=== PATIENT | male | born 1965 | race Caucasian/White ===

== ENCOUNTER 2023-05-02 13:29 | Outpatient (REF) | payer OTHER, SELFPAY ==
--- NOTE | ~2023-05-02 | XR_ITS ---
EXAMINATION: XR LUMBOSACRAL SPINE CLINICAL INFORMATION: Reason for Exam M43.16 - Spondylolisthesis, lumbar region COMPARISON: None TECHNIQUE: 3 views of the lumbar spine FINDINGS: 5 nonrib-bearing lumbar-type vertebral bodies. Suspected lucency in the left aspect of the L1 transverse process, unclear if this could be secondary to overlying bowel gas or reflect a nondisplaced transverse process fracture. Recommend correlation with point tenderness. Vertebral body heights are maintained. Alignment is maintained. Grade 1 anterolisthesis of L4 on L5 not significantly changed on flexion extension views. Moderate multilevel degenerative disc disease with loss of disc space height and facet arthropathy. Atherosclerotic calcifications of the abdominal aorta. XR/XR lumbar spine 4V min IMPRESSION: 1. Suspected lucency in the left aspect of the L1 transverse process, unclear if this could be secondary to overlying bowel gas or reflect a nondisplaced transverse process fracture. Recommend correlation with point tenderness. 2. Grade 1 anterolisthesis of L4 on L5 not significantly changed on flexion extension views. 3. Moderate multilevel degenerative disc disease with loss of disc space height and facet arthropathy.
== END 2023-05-02 13:30 | disposition home or self-care (01) ==
LOC: HO.HOSX 13:29
PROVIDERS: Visit Provider Physician Assistant
DX: M43.16 Spondylolisthesis, lumbar region (principal)
CPT/HCPCS: 72110

== ENCOUNTER 2024-02-26 14:29 | Outpatient (AMB) | payer OTHER, SELFPAY ==
--- NOTE | 2024-02-26 14:37 | A.SPINEOV_ITS ---
Intake Visit Reasons: discuss sx Intake Note: Mr. Rowe is here today to discuss surgery. 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 Please see my last note for the presenting problem in his medical history. He tells me that since we last spoke in the office, it the cortisone injection that he had has worn off and he is now getting bilateral severe stabbing pains down the back of his hamstrings when he stands and walks. It is getting to the point now where he is in almost complete agony when he is trying to walk for any length. As soon as he sits down it goes away. The bottom of his feet go numb and they feel swollen. He is also reporting now that at times he will get intermittent hand numbness as well. No fine motor loss. He has on exam some mild hand weakness but otherwise good strength in bilateral upper and lower extremities with diminished reflexes throughout. He is a diabetic however. His last A1c was 6.3. I reviewed his imaging again done at [place] in December of 2022 showing multilevel stenosis, moderate at L2-3 and L3-4 with severe at L4-5. Because he does not show any signs of instability on his x-rays, Dr. Anne believes the best approach would be simply to do a L4-5 decompression. I would like to get updated imaging because the MRI is a year old just to make sure that the stenosis has not progressed above L4-5 were was moderate. Also, he is reporting that he has had progressive numbness of his arms and in the setting of what feels like some mild hand weakness and his being diabetic, I would like to exclude that he has any central stenosis of the cervical spine. I will order cervical MRI. I will call him with the results of the MRIs just to confirm the plan. I also gave him a referral to PT because he has not done yet yet to this point, but I do not think will have any meaningful impact on his current set of symptoms. It is more being done in the setting of the insurance companies require it before us offering surgery. Total amount of time spent in this visit was 20 minutes in discussion of symptoms, lumbar MRI imaging results and subsequent plan of care Luis Miguel Anne MD,PhD [facility] Orders: Orders PT Evaluation and Treatment Today M48.061 - Spinal stenosis, lumbar region without neurogenic claudication MR cervical spine wo con Today R20.0 - Anesthesia of skin MR lumbar spine wo con Today M48.061 - Spinal stenosis, lumbar region without neurogenic claudication Coding Level of Care Code Est Pt Level 3 (25886) Diagnoses Lumbar stenosis M48.061 Numbness in both hands R20.0
== END 2024-02-26 15:52 | disposition home or self-care (01) ==
PROVIDERS: PCP Internal Medicine; Visit Provider Physician Assistant
DX: M48.061 Spinal stenosis, lumbar region without neurogenic claudication (principal); R20.0 Anesthesia of skin
CPT/HCPCS: 99213

== ENCOUNTER → 2024-02-26 14:29 | Outpatient (BNVA) | payer OTHER, SELFPAY | PROVIDERS: PCP Internal Medicine; Visit Provider Physician Assistant ==

== ENCOUNTER 2024-04-22 07:00 | Outpatient (RCR) | payer OTHER, SELFPAY ==
[2024-03-04 08:06] VITALS: BP 118/70; PULSE 79; O2SAT 96
== END 2024-09-06 08:17 | disposition home or self-care (01) ==
LOC: HO.PTWFD 07:00
PROVIDERS: PCP Internal Medicine; Visit Provider Physician Assistant
DX: M48.061 Spinal stenosis, lumbar region without neurogenic claudication (principal)
CPT/HCPCS: 97014; 97110; 97116; 97140; 97162; 97535

== ENCOUNTER 2024-08-20 15:29 | Outpatient (AMB) | payer OTHER, SELFPAY ==
--- NOTE | 2024-08-20 15:36 | A.SPINEOV_ITS ---
Intake Visit Reasons: unbalance Intake Note: Mr. Rowe is here to f/u and feeling unbalance. Fundraising Assistant Required: No Allergies Penicillins [PENICILLINS] Allergy (Unknown, Unverified 07/13/20 17:35) ANAPHYLAXIS Assessment & Plan Assessment & Plan (1) Numbness in both hands: Code(s): R20.0 - Anesthesia of skin Category: Medical (2) Lumbar stenosis: Code(s): M48.061 - Spinal stenosis, lumbar region without neurogenic claudication Category: Medical Qualifiers: Neurogenic claudication status: with neurogenic claudication Qualified Code(s): M48.062 - Spinal stenosis, lumbar region with neurogenic claudication Plan Dear colleague, On 08/20/2024, I saw Luis Miguel Rowe. He is a pleasant 59-year-old male there was previously seen by drake Desai for neurogenic claudication due to lumbar stenosis. He also had signs of cervical myelopathy. The PA order ed an MRI of the lumbar spine and cervical spine which were not done. The patient stated he never received a phone call for the tests. Patient still has symptoms of neurogenic claudication with pain radiating down both legs. He also complains of increased balance problems and proximal leg weakness which are signs of cervical myelopathy. I will resubmit the order for the MRI of the lumbar spine and cervical spine and will follow-up after the tests are done. I spent 25 minutes in his consult answering questions. Charlie Anne MD, PhD Spine Fellowship Trained Neurosurgeon Director, [facility] Orders: Orders MR lumbar spine wo con Today M48.061 - Spinal stenosis, lumbar region without neurogenic claudication MR cervical spine wo con Today R20.0 - Anesthesia of skin Coding Level of Care Code Est Pt Level 3 (45274) Diagnoses Numbness in both hands R20.0 Spinal stenosis of lumbar region with neurogenic claudication M48.062 Neurogenic claudication status: with neurogenic claudication
== END 2024-08-20 16:50 | disposition home or self-care (01) ==
PROVIDERS: PCP Internal Medicine; Visit Provider Neurological Surgery
DX: R20.0 Anesthesia of skin (principal); M48.062 Spinal stenosis, lumbar region with neurogenic claudication
CPT/HCPCS: 99213

== ENCOUNTER → 2024-08-20 15:29 | Outpatient (BNVA) | payer MEDICAID, SELFPAY | PROVIDERS: PCP Internal Medicine; Visit Provider Neurological Surgery ==

== ENCOUNTER 2024-09-08 18:18 | Outpatient (REF) | payer OTHER, SELFPAY | END 2024-09-08 18:19 | disposition home or self-care (01) | LOC: HO.MRI 18:18 | PROVIDERS: PCP Internal Medicine; Visit Provider Neurological Surgery | DX: R20.0 Anesthesia of skin (principal); M48.061 Spinal stenosis, lumbar region without neurogenic claudication | CPT/HCPCS: 72141; 72148 ==

== ENCOUNTER 2024-11-03 15:11 | Outpatient (AMB) | payer OTHER, SELFPAY ==
--- NOTE | 2024-11-03 15:16 | A.SPINEOV_ITS ---
Intake Visit Reasons: Discuss MRI Results Intake Note: Mr. Rowe is here today to Discuss the results to MRI. 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 We saw this patient originally for neurogenic claudication. The physician physician office assistant noticed signs of cervical myelopathy during the visit and decided to order a new MRI of the lumbar spine as the other 1 was more than 1-year-old and to order an MRI of the cervical spine. The MRI was done over 2 months ago and a report was still not available. The patient decided to call my office inquiring when the MRI would be read. I was notified by my staff and reviewed the images myself. The MRI of the cervical spine shows severe spinal cord compression at C6-7 and moderate spinal cord compression at C5-C6. In addition, the lumbar spine MRI shows severe spinal stenosis at L4-5 and L2-3. I repeated the history and the patient states that his neurological function is rapidly declining. Specifically, he has dexterity loss of his hands, proximal leg weakness and unsteadiness. He now walks with a cane and has fallen multiple times. He states that he can hardly walk anymore due to the in security from being off balance. He also has urge incontinence. In addition to the myelopathic symptoms he continues to have neurogenic claudication with pain radiating down both legs with walking and standing. On exam, he has a spastic gait and ambulates with a cane. There is proximal leg weakness 3/5 bilaterally. Bilateral dexterity loss of his hands. In summary, this patient is suffering from progressive cervical myelopathy due to C5-6 and C6 spinal cord compression. This needs to be addressed in a rather urgent manner. I discussed an anterior diskectomy and fusion C5-6 C6-7 with the patient. I discussed the procedure, possible complications and expected outcome. I advised him to undergo this procedure within 2-3 weeks. He will call my office after he has discuss the situation with his work and the healthcare insurance company,[employer]. As far as the lumbar spine, a lumbar laminotomy me L2-3, L4-5 can be done relatively quickly following the cervical spinal cord decompressive surgery. I spent 45 minutes in his consult to review and discuss the MRI results, the surgical plan and answering questions. 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
== END 2024-11-03 15:58 | disposition home or self-care (01) ==
PROVIDERS: PCP Internal Medicine; Visit Provider Neurological Surgery
DX: M47.12 Other spondylosis with myelopathy, cervical region (principal); M48.062 Spinal stenosis, lumbar region with neurogenic claudication
CPT/HCPCS: 99215

== ENCOUNTER → 2024-11-03 15:11 | Outpatient (BNVA) | payer OTHER, SELFPAY | PROVIDERS: PCP Internal Medicine; Visit Provider Neurological Surgery ==

== ENCOUNTER → 2024-12-07 13:06 | Outpatient (BNV) | payer OTHER, SELFPAY | PROVIDERS: PCP Internal Medicine; Visit Provider Internal Medicine Cardiovascular Disease | DX: R94.31 Abnormal electrocardiogram [ECG] [EKG] (principal); Z01.810 Encounter for preprocedural cardiovascular examination | CPT/HCPCS: 93010 ==

== ENCOUNTER 2024-12-23 06:02 | Day surgery (SDC) | payer OTHER, SELFPAY ==
--- NOTE | 2024-12-07 | ECG_ITS ---
Test Reason : PREOP Blood Pressure : */* mmHG Vent. Rate : 76 BPM Atrial Rate : 76 BPM P-R Int : 146 ms QRS Dur : 78 ms QT Int : 380 ms P-R-T Axes : 6 4 24 degrees QTcB Int : 427 ms Normal sinus rhythm Nonspecific ST abnormality Abnormal ECG When compared with ECG of 10-Aug-2014 13:04, No significant change was found Referred By: Suha Manrique Electronically Signed By: ABHILASH SHAVER MD
[2024-12-07 12:03] VITALS: BP 134/70; PULSE 82; RESP 16; O2SAT 96; BMI 38.0
--- NOTE | 2024-12-07 12:39 | HO.ANESPROP2 ---
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 (Acute) Numbness in both hands (Acute) Lumbar stenosis (Acute) Spondylolisthesis, lumbar region (Acute) Past Medical History Medical History Peripheral neuropathy Proteinuria Normocytic anemia Thrombocytopenia Asthma Hearing loss Anxiety KEYLA (obstructive sleep apnea) (~2016) GERD (gastroesophageal reflux disease) Depression Obesity Stage 3 chronic kidney disease Type 2 diabetes mellitus with hyperglycemia, without long-term current use of insulin Cervical spine disease Gout Lumbar spondylolysis HLD (hyperlipidemia) HTN (hypertension) Family History Family history of problems with anesthesia: No Surgical History Surgical History Hx of colonoscopy (~2019) Hx of meniscectomy of right knee (2011) Hx of right inguinal hernia repair (1964) History of Problems with Anesthesia: No Social History Social History Household Members: Family Housing: House Are you a primary child care center administrator to a significant other at home: No Do you presently have visiting nurse or other home services: No Comment: poor balance uses walking stick. aware of trip hazard Patient Tobacco Use Status: Former Tobacco user Tobacco use type: Cigarette Smoked in Last 30 Days: No Second Hand Smoke Exposure: No Use of substances other than those prescribed or required for medical reasons: No Have you been hit, kicked, punched, or otherwise hurt by someone within the past year? If so, by whom?: No Are you DNR?: No Advance Directives: No Advance Directives Information Provided: Yes Advance Directives on File: No Recently lost weight without trying: No Poor oral hygiene: No Meds Allergies Allergy/AdvReac Type Severity Reaction Status Date / Time amoxicillin [From Amoxil] Allergy Severe Anaphylaxis Verified 12/23/24 06:25 Penicillins [PENICILLINS] Allergy Severe ANAPHYLAXIS Verified 12/23/24 06:25 oxycodone AdvReac Severe Anxiety Verified 12/23/24 06:25 Home Medications ?Medication ?Instructions ?Recorded ?Confirmed ?Last Taken ?Type allopurinol 300 mg tablet 300 mg PO DAILY 12/06/24 12/23/24 Unknown History aspirin 81 mg tablet,delayed 81 mg PO DAILY 12/06/24 12/23/24 Unknown History release atenolol 25 mg tablet 25 mg PO DAILY 12/06/24 12/23/24 12/23/24 05:30 History lisinopril 20 1 tab PO DAILY 12/06/24 12/23/24 Unknown History mg-hydrochlorothiazide 25 mg tablet metformin 500 mg tablet 1,000 mg PO BID 12/06/24 12/23/24 Unknown History simvastatin 20 mg tablet 20 mg PO BEDTIME 12/06/24 12/23/24 Unknown History acetaminophen 650 mg 1,300 mg PO Q12H 12/07/24 12/23/24 Unknown History tablet,extended release calcium carbonate (Tums) 200 mg PO BID PRN Acid Reflux 12/07/24 12/23/24 Unknown History cholecalciferol (vitamin D3) 50 50 mcg PO DAILY 12/07/24 12/23/24 Unknown History mcg (2,000 unit) capsule (Vitamin D3) simethicone 80 mg chewable tablet 80 mg PO DAILY PRN Acid Reflux 12/07/24 12/23/24 Unknown History Exam Height,Weight and Vital Signs: Height 5 ft 10 in Weight 120.2 kg Last Vital Signs Pulse 82 12/07/24 12:03 Resp 16 12/07/24 12:03 BP 134/70 12/07/24 12:03 Pulse Ox 96 12/07/24 12:03 O2 Del Method Room Air 12/07/24 12:03 Pertinent Lab Results Pertinent Lab Results: Lab Results 12/07/24 Range/Units 13:22 WBC 7.5 (4.8-10.8) X10*3/uL RBC 4.57 L (4.60-5.80) X10*6/uL Hgb 14.8 (14.0-18.0) g/dl Hct 40.2 L (42.0-52.0) % MCV 88.0 (80.0-98.0) fL MCH 32.4 (27.0-33.0) pg MCHC 36.8 H (31.0-36.0) g/dl RDW 12.7 (11.0-16.0) % Plt Count 109 L (160-400) X10*3/uL MPV 10.1 (9.4-12.4) fL Absolute Nucleated RBC 0.000 (0.0-0.012) X10*3/uL Nucleated RBC % (auto) 0.0 (0.0-0.2) /100WBC Sodium 137 (135-145) mmol/L Potassium 3.7 (3.3-5.1) mmol/L Chloride 104 (96-108) mmol/L Carbon Dioxide 22 (22-29) mmol/L Anion Gap 15 (12-20) BUN 22 H (9-16) mg/dL Creatinine 1.25 (0.5-1.4) mg/dL Estim Creat Clear Calc 81.6 Estimated GFR 59 Random Glucose 184 H (60-115) mg/dL Estimat Average Glucose 180 mg/dL Hemoglobin A1c % 7.9 H (<6.0) % Calcium 9.4 (8.4-10.2) mg/dL Narrative Narrative: EKG 11/2024 Vent. Rate : 76 BPM Atrial Rate : 76 BPM P-R Int : 146 ms QRS Dur : 78 ms QT Int : 380 ms P-R-T Axes : 6 4 24 degrees QTcB Int : 427 ms Normal sinus rhythm Nonspecific ST abnormality Abnormal ECG When compared with ECG of 10-Aug-2014 13:04, No significant change was found Airway Mallampati Class: II TM Dist: >3cm Neck ROM: Limited Loose/Missing/Broken Teeth: Yes (Broken wisdom teeth, 1 x crowned molar) Heart: RRR Lungs: CTAB Assessment and Plan Assessment Anesthesia Assessment: Anesthesia Plan Discussed and PAT Visit Final Anesthetic Review Family History of Problems with Anesthesia: No History of Problems with Anesthesia: No Documented by User: Anila Santillan MD 12/23/24 08:57 HPI - Anesthesia Eval Consult details Narrative: 59yo M for C5-6,C6-7 Ant Cerv Discectomy w/ fusion, 12/23/24 No recent illness No CP/SOB with minimal activity Asthma: asymptomatic, no inhalers for years KEYLA: Mild. CPAP not recommended. 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 Walks with cane for balance Past Medical History Medical History Peripheral neuropathy Proteinuria Normocytic anemia Thrombocytopenia Asthma Hearing loss Anxiety KEYLA (obstructive sleep apnea) (~2017) GERD (gastroesophageal reflux disease) Depression Obesity Stage 3 chronic kidney disease Type 2 diabetes mellitus with hyperglycemia, without long-term current use of insulin Cervical spine disease Gout Lumbar spondylolysis HLD (hyperlipidemia) HTN (hypertension) Family History Family history of problems with anesthesia: No Surgical History Surgical History Hx of colonoscopy (~2019) Hx of meniscectomy of right knee (2011) Hx of right inguinal hernia repair (1965) History of Problems with Anesthesia: No Social History Social History Household Members: Family Housing: House Are you a primary child care center administrator to a significant other at home: No Do you presently have visiting nurse or other home services: No Comment: poor balance uses walking stick. aware of trip hazard Patient Tobacco Use Status: Former Tobacco user Tobacco use type: Cigarette Smoked in Last 30 Days: No Second Hand Smoke Exposure: No Use of substances other than those prescribed or required for medical reasons: No Have you been hit, kicked, punched, or otherwise hurt by someone within the past year? If so, by whom?: No Are you DNR?: No Advance Directives: No Advance Directives Information Provided: Yes Advance Directives on File: No Recently lost weight without trying: No Poor oral hygiene: No Meds Allergies Allergy/AdvReac Type Severity Reaction Status Date / Time amoxicillin [From Amoxil] Allergy Severe Anaphylaxis Verified 12/23/24 06:25 Penicillins [PENICILLINS] Allergy Severe ANAPHYLAXIS Verified 12/23/24 06:25 oxycodone AdvReac Severe Anxiety Verified 12/23/24 06:25 Home Medications ?Medication ?Instructions ?Recorded ?Confirmed ?Last Taken ?Type allopurinol 300 mg tablet 300 mg PO DAILY 12/06/24 12/23/24 Unknown History aspirin 81 mg tablet,delayed 81 mg PO DAILY 12/06/24 12/23/24 Unknown History release atenolol 25 mg tablet 25 mg PO DAILY 12/06/24 12/23/24 12/23/24 05:30 History lisinopril 20 1 tab PO DAILY 12/06/24 12/23/24 Unknown History mg-hydrochlorothiazide 25 mg tablet metformin 500 mg tablet 1,000 mg PO BID 12/06/24 12/23/24 Unknown History simvastatin 20 mg tablet 20 mg PO BEDTIME 12/06/24 12/23/24 Unknown History acetaminophen 650 mg 1,300 mg PO Q12H 12/07/24 12/23/24 Unknown History tablet,extended release calcium carbonate (Tums) 200 mg PO BID PRN Acid Reflux 12/07/24 12/23/24 Unknown History cholecalciferol (vitamin D3) 50 50 mcg PO DAILY 12/07/24 12/23/24 Unknown History mcg (2,000 unit) capsule (Vitamin D3) simethicone 80 mg chewable tablet 80 mg PO DAILY PRN Acid Reflux 12/07/24 12/23/24 Unknown History Exam Height,Weight and Vital Signs: Height 5 ft 10 in Weight 120.2 kg Last Vital Signs Pulse 82 12/07/24 12:03 Resp 16 12/07/24 12:03 BP 134/70 12/07/24 12:03 Pulse Ox 96 12/07/24 12:03 O2 Del Method Room Air 12/07/24 12:03 Vital Signs Temp Pulse Resp BP Pulse Ox O2 Del Method 12/23/24 06:27 97.7 F 74 16 139/88 96 Room Air Pertinent Lab Results Pertinent Lab Results: Lab Results 12/07/24 Range/Units 13:22 WBC 7.5 (4.8-10.8) X10*3/uL RBC 4.57 L (4.60-5.80) X10*6/uL Hgb 14.8 (14.0-18.0) g/dl Hct 40.2 L (42.0-52.0) % MCV 88.0 (80.0-98.0) fL MCH 32.4 (27.0-33.0) pg MCHC 36.8 H (31.0-36.0) g/dl RDW 12.7 (11.0-16.0) % Plt Count 109 L (160-400) X10*3/uL MPV 10.1 (9.4-12.4) fL Absolute Nucleated RBC 0.000 (0.0-0.012) X10*3/uL Nucleated RBC % (auto) 0.0 (0.0-0.2) /100WBC Sodium 137 (135-145) mmol/L Potassium 3.7 (3.3-5.1) mmol/L Chloride 104 (96-108) mmol/L Carbon Dioxide 22 (22-29) mmol/L Anion Gap 15 (12-20) BUN 22 H (9-16) mg/dL Creatinine 1.25 (0.5-1.4) mg/dL Estim Creat Clear Calc 81.6 Estimated GFR 59 Random Glucose 184 H (60-115) mg/dL Estimat Average Glucose 180 mg/dL Hemoglobin A1c % 7.9 H (<6.0) % Calcium 9.4 (8.4-10.2) mg/dL Laboratory Results - last 24 hr 12/23/24 06:41 POC Glucose 201 H Airway Mallampati Class: III TM Dist: >3cm Neck ROM: Limited (Restricted side to side movement. Extension OK) Loose/Missing/Broken Teeth: Yes (Broken molar bottom right. Missing tooth bottom right back. Denies loose tooth) Heart: RRR Lungs: CTAB Assessment and Plan Assessment Anesthesia Assessment: Anesthesia Plan Discussed, PAT Visit and Chart Reviewed Final Anesthetic Review Family History of Problems with Anesthesia: No History of Problems with Anesthesia: No NPO: Yes ASA Class: III Final Preanesthetic Review: No Changes in Pt Med Stat, Meds/Allgs Chart Reviewed, Consent Obtained/Reviewed and Anes Risks/Benef Reviewed Patient Risk: Intermediate Procedure Risk: Intermediate Assessment/Block/Sedation in SS: Assess/Block/Sedation-SS Anesthetic Plan Anesthetic Plan: GA Disposition: Standard PACU
[2024-12-07 15:29] LABS: Hematocrit 40.2 % (42.0-52.0); Hemoglobin 14.8 g/dl (14.0-18.0); Mean Corpuscular HGB Conc 36.8 g/dl (31.0-36.0); Mean Corpuscular Hemoglobin 32.4 pg (27.0-33.0); Mean Platelet Volume 10.1 fL (9.4-12.4); Platelet Count 109 X10*3/uL (160-400); Red Blood Count 4.57 X10*6/uL (4.60-5.80); Red Cell Distribution Width 12.7 % (11.0-16.0); White Blood Count 7.5 X10*3/uL (4.8-10.8)
[2024-12-07 15:52] LABS: Anion Gap 15 (12-20); Blood Urea Nitrogen 22 mg/dL (9-16); Calcium 9.4 mg/dL (8.4-10.2); Carbon Dioxide 22 mmol/L (22-29); Chloride 104 mmol/L (96-108); Creatinine Clr Calc Pharmacy 81.6; Estimated Glomerular Filt Rate 59; Glucose Random 184 mg/dL (60-115); Potassium 3.7 mmol/L (3.3-5.1); Sodium 137 mmol/L (135-145)
[2024-12-07 16:07] LABS: Estimated Average Glucose 180 mg/dL; Hemoglobin A1C 243.8093 umol/L; Hemoglobin A1c % 7.9 % (<6.0); Total Hemoglobin (HGBA1C) 3859.6229 umol/L
[2024-12-23] VITALS (12 sets, daily range): BP systolic 128–146; BP diastolic 77–91; PULSE 71–85; RESP 16–24; TEMP 36.1–36.6; O2SAT 95–96; BMI 37.8
--- NOTE | ~2024-12-23 | FL_ITS ---
EXAMINATION: FL GUIDANCE ONLY HISTORY: c5-7 ACDF COMPARISON: Correlation is made with an MRI of the cervical spine dated 09/08/2024. TECHNIQUE: Fluoroscopy time: 7.2 seconds. Cumulative Dose: 1.5484 mGy. DAP: 0.6736 mGym2 Images: 2. FINDINGS: Images demonstrate anterior cervical disc fusion at C5-6 and C6-7. FL/FL guidance in OR IMPRESSION: Fluoroscopy during procedure. Please see procedure report for additional information. Electronically signed by: Zana Garza MD 12/23/2024 10:25 AM AMEE
[2024-12-23] MEDS: Lactated Ringers 1,000 ML 100 ML IVCONT (06:51)
--- NOTE | 2024-12-23 07:02 | MHC.SHP ---
Pre-Procedural Eval Section A - 24 Hr Update-Section A only Date of Service: 12/23/24 The patient is an INPATIENT: No Changes since office visit: No Cold of Flu in the past 2 weeks, No New Medical Problems, No Changes in Medication and No Patient answered all questions The patient has been examined within 24 hours of the surgical procedure. The History & Physical has been completed within 30 days and I have reviewed it.: No Section B - Complete if H&P > 30 days Chief Complaint: Other spondylosis with myelopathy, cervical region Allergies: Allergies Allergy/AdvReac Type Severity Reaction Status Date / Time amoxicillin [From Amoxil] Allergy Severe Anaphylaxis Verified 12/23/24 06:25 Penicillins [PENICILLINS] Allergy Severe ANAPHYLAXIS Verified 12/23/24 06:25 oxycodone AdvReac Severe Anxiety Verified 12/23/24 06:25 Review of Systems Sugical H&P ROS: Negative: Constitution, Cardiovascular, Respiratory, Neurological, Psychiatric, Hem-Onc, Allergic/Immunologic, Gastrointestinal, Genitourinary, Musculoskeletal, Integumentary, Endocrine and Eyes/Ears/Nose/Throat Exam Surgical H&P Exam: Normal: HEENT, Normal: Heart, Normal: Lungs, Normal: Extremities, Normal: Abdomen, Normal: Skin and Normal: Neurological (awake, alert,oriented x 3 ) Plan Diagnosis/Plan: Unchanged C5-6, C6-7 anterior cervical diskectomy and fusion Time Spent With Patient Time: Total time managing care of this patient today ___5_ minutes.
[2024-12-23 07:03] LABS: Glucose, Whole Blood 201 mg/dL (60-115)
--- NOTE | 2024-12-23 07:03 | PM.DS ---
DS: Providers Provider Date of Service: 12/23/24 Date of discharge: 12/23/24 Primary care physician: Nati Sanders MD Admitting clinician: Charlie Anne DS: Diagnosis Discharge Diagnosis (1) Lumbar stenosis with neurogenic claudication: Status: Acute DS: Summary Time Attestation Discharge Coordination Time (in mins): 5 Quality: Safe Use of Opioids Does Pt have an Active Cancer Diagnosis on the Problem List?: No Quality: Stroke Does the patient have a stroke diagnosis?: No Physical Exam Vital Signs: Vital Signs: Last Vital Signs Temp 97.7 F 12/23/24 06:27 Pulse 74 12/23/24 06:27 Resp 16 12/23/24 06:27 BP 139/88 12/23/24 06:27 Pulse Ox 96 12/23/24 06:27 O2 Del Method Room Air 12/23/24 06:27 BMI result Body Mass Index 37.8 DS: Data Data Completed and Pending Labs on day of discharge: Laboratory Results - last 24 hr 12/23/24 06:41 POC Glucose 201 H Discharge Plan Discharge Patient Disposition: Home, Self-Care Referrals: Nati Sanders MD [Primary Care Provider] - 1 Week Discharge Medications: New docusate sodium [Colace] 100 mg capsule 100 mg PO BID Qty: 20 0RF tramadol 50 mg tablet 50 mg PO Q6H PRN (Reason: pain) Qty: 30 0RF Continued metformin 500 mg tablet 1,000 mg PO BID atenolol 25 mg tablet 25 mg PO DAILY simvastatin 20 mg tablet 20 mg PO BEDTIME lisinopril-hydrochlorothiazide 20-25 mg tablet 1 tab PO DAILY allopurinol 300 mg tablet 300 mg PO DAILY acetaminophen 650 mg Tablet Extended Release 1,300 mg PO Q12H cholecalciferol (vitamin D3) [Vitamin D3] 50 mcg (2,000 unit) Capsule 50 mcg PO DAILY calcium carbonate [Tums] 200 mg calcium (500 mg) Tablet,Chewable 200 mg PO BID PRN (Reason: Acid Reflux) simethicone 80 mg Tablet,Chewable 80 mg PO DAILY PRN (Reason: Acid Reflux) Held aspirin 81 mg tablet,delayed release (DR/EC) 81 mg PO DAILY Hold Instructions: Resume on 12/30/24. you may resume 7 days after surgery Discharge Orders: Discharge Order (Routine); Ordered 12/23/24 Ordered By: Luis Miguel Lopez Diet: Advance to usual diet Activity on Discharge: As tolerated Activity Restrictions/Additional Instructions: After your spinal surgery we ask you to observe the following restrictions/guidelines: Activity: It is normal to feel some discomfort as you increase your activity, but that will improve with time. We ask you avoid heavy lifting or acitivities that cause pain. As a general rule, 8lbs is a safe limit for lifting right after surgery. Walk as much as you feel comfortable but not to exhaustion. You will feel extra tired the first few days after surgery. Stay well hydrated. It is OK to walk up and down stairs You may return to driving when you are off narcotics (such as vicodin, oxycodone, dilaudid, etc), and you are back to normal functional capacity. If you have any concerns please check with office before driving. Return to work is specific to each patient and each surgery, so please speak with your doctor/PA at first follow up. Please bring paperwork such as FMLA at that time if you need it filled out. Medications: You can resume your aspirin 7 days after surgery For optimum pain control, it is best to start with a combination of 500 mg of Tylenol every 4 hours with 600 mg of Motrin every 8 hours, and use narcotics as needed in between for breakthrough pain. We will give you a short supply of narcotics after surgery (usually one weeks worth). If you need more please call the office but do not use more than prescribed. You will need to give our office 48 hours notice if you need narcotics refilled and we do not fill narcotics on weekends or evenings. If you are on a narcotic, it is a good idea to take a stool softener such as colace or senna to avoid constipation If you take blood thinner such as aspirin, Plavix, Coumadin, Effient, Eliquis etc for conditions such as Afib, DVT, Pulmonary embolus, coronary disease, stents etc please speak with your surgeon about specific details as to when you can resume these medications. You can resume NSAIDs on post op day 1 (eg: Motrin, Naproxen, etc). Follow up: Please call the office, , after surgery to arrange a 3 week follow up for wound check. Wound Care: You may remove your dressing on the first day after surgery. ?You may ?leave open to air. Please do not remove the steri strips underneath. they will fall off on their own in one week. IT IS NORMAL FOR THE WOUND TO OOZE OR BE BLOODY FOR A FEW DAYS AFTER SURGERY. ?IF THIS HAPPENS JUST PLACE NEW DRESSING OVER IT TO AVOID STAINING CLOTHES. You may shower on post op day # 1 We ask that you do not let the water soak the wound. If it does get wet, just towel dry lightly. Please do not scrub your incision or place any type of chemical/ointment on the wound. No tub baths, pools or jacuzzis for one month. If you have any leaking or redness from your wound, or fevers, please call office Print Language: Lithuanian
[2024-12-23] MEDS: methocarbamoL 750 MG TABLET PO (07:36)
[2024-12-23] MEDS: Gabapentin 300 MG CAPSULE PO (07:36)
[2024-12-23] MEDS: vancomycin/NS 2,000 MG/500 ML PLAST..BAG 250 MG IV (07:55)
[2024-12-23] MEDS: Acetaminophen 1,000 MG/100 ML PIGGYBACK 400 MG IV (08:15)
--- NOTE | 2024-12-23 09:57 | P.OP_ITS ---
Operative Note Operative Note Date of Service: 12/23/24 Narrative: Preoperative Diagnosis: Cervical myelopathy Procedure: C5-C6, C6-7 Anterior discectomy, arthrodesis and implantation cage ; C5-C7 anterior instrumentation ; local autograft; microscope Informed Consent was obtained for this operation. I have explained the nature, purpose and benefits of the operation. I have discussed the risks and benefit of the operation including possible complications or adverse events with sebas ent/family. Alternative(s) were discussed with the patient with their relative benefits and risks as well as the consequences of not accepting the operation were included in obtaining consent. Surgeon: BLAYNE RUBIO MD, PHD Procedure Assisted By: Luis Miguel juan Description of Procedure: This patient is suffering from progressive cervical myelopathy due to severe spinal cord compression at C5-6 and C6-7. He was offered an ACDF of those levels. The procedure complications were explained. The patient was consented. The patient was brought to the operating room and endotracheally intubated. The patient was put in supine position with slight extension of the neck. Prep and drape was done followed by timeout. A mid cervical incision was made followed by opening of the platysma. The prevertebral fascia was reached following the natural planes while the physician business banking sales assistant provided manual retraction. The prevertebral fascia was opened to expose the disc space. A spinal needle was placed in the disk space to confirm the correct level with xray. The longus colli muscles were released bilaterally and a self retaining retractor was inserted. Large anterior osteophytes were resected from the C5-6 and C6-7 vertebral bodies and saved for autograft. An initial diskectomy was done towards the posterior part of the annulus at both levels. Two York pins were placed in the C5 and C6 vertebral bodies and distraction was give over the interspace. The discectomy was completed toward the posterior annulus of the disc. The microscope was brought in. The remainder of the discectomy was completed. The hypertrophied posterior ligament was opened and resected to expose the underlying dura. The dura was further decompressed by removing the ligament. Large posterior osteophytes were resected from the body of C5-C6 to further decompress the spinal cord. The osteophytes Osteophytes were r saved for autograft. Bilateral foraminotomies were done. The endplates were prepared after which a 6 mm cage filled with autograft was inserted into the disc space. A separate attached plate was locked down with 2 x 14 mm screws as anterior instrumentation. Then attention was turned to the C6-7 level where similar findings were encountered. The hypertrophied posterior longitudinal ligament was over them resected followed by resection of posterior osteophytes that were compressing the spinal cord. Bilateral foraminotomies were done. Then another 6 mm cage filled with autograft was inserted into the disc space. A separate attached plate was locked down with 2 x 14 mm screws as anterior instrumentation. Final x-rays in AP and lateral projection showed a satisfactory position of the implants and anterior instrumentation. The physician business banking sales assistant took over. The York pin was removed. Hemostasis was done. He closed the incision in 2 layers with a 3-0 Vicryl. Steri-Strips used to approximate incision. An OpSite with Tegaderm was used to cover the incision. All sponge and needle counts were correct. Patient was extubated and transported in stable is to recovery room. Anesthesia: General Estimated Blood Loss (ml): 25 mL Duration of Surgery: 1 hour 20 minutes Postoperative Plan: Discharge home Complications: None
[2024-12-23] MEDS: ondansetron HCL 4 MG/2 ML VIAL IVPUSH (10:12)
[2024-12-23] MEDS: Haloperidol Lactate 5 MG/ML VIAL 1 MG IVPUSH (10:50)
== END 2024-12-23 13:20 | disposition home or self-care (01) ==
PROVIDERS: Nurse Practitioner; PCP Internal Medicine; Visit Provider Neurological Surgery
PROC: (CPT 22551; principal; 2024-12-23 07:30)
DX: M50.022 Cervical disc disorder at C5-C6 level with myelopathy (principal); M50.023 Cervical disc disorder at C6-C7 level with myelopathy; M47.12 Other spondylosis with myelopathy, cervical region; M48.062 Spinal stenosis, lumbar region with neurogenic claudication; R26.1 Paralytic gait; R26.2 Difficulty in walking, not elsewhere classified; Z91.81 History of falling; R27.8 Other lack of coordination; Z99.89 Dependence on other enabling machines and devices; E11.22 Type 2 diabetes mellitus with diabetic chronic kidney disease; E11.65 Type 2 diabetes mellitus with hyperglycemia; I12.9 Hypertensive chronic kidney disease with stage 1 through stage 4 chronic kidney disease, or unspecified chronic kidney disease; N18.30 Chronic kidney disease, stage 3 unspecified; Z79.84 Long term (current) use of oral hypoglycemic drugs; G47.33 Obstructive sleep apnea (adult) (pediatric); Z88.0 Allergy status to penicillin; Z87.891 Personal history of nicotine dependence
CPT/HCPCS: 22551; 22552; 22853; 20936; 22845; 36415; 80048; 82947; 83036; 85027; 93005; C1713; C1889; J0131; J1100; J1596; J1630; J2003; J2250; J2371; J2405; J2704; J3010; J3370

== ENCOUNTER → 2024-12-23 06:02 | Outpatient (BNV) | payer OTHER, SELFPAY | PROVIDERS: PCP Internal Medicine; Visit Provider Neurological Surgery | DX: M50.023 Cervical disc disorder at C6-C7 level with myelopathy (principal); M50.022 Cervical disc disorder at C5-C6 level with myelopathy | CPT/HCPCS: 20936; 22551; 22552; 22845; 22853; 99499 ==

== ENCOUNTER 2025-01-13 15:12 | Outpatient (REF) | payer OTHER, SELFPAY | END 2025-01-13 15:13 | disposition home or self-care (01) | LOC: HO.HOSX 15:12 | PROVIDERS: PCP Internal Medicine; Visit Provider Physician Assistant | DX: Z13.89 Encounter for screening for other disorder (principal) ==

== ENCOUNTER 2025-01-13 15:12 | Outpatient (AMB) | payer OTHER, SELFPAY ==
--- NOTE | 2025-01-13 15:13 | HO.SPINEOV ---
Intake Visit Reasons: 1st post op Intake Note: Mr. Rowe is here today for his 1st post op. 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 He is very pleased with how the surgery went. His balance is much better, his ability to get out of a chair is much more stable. Interestingly, it also took away his lumbar sciatic pains. He is still having the chronic low back pain but the radicular and claudicating pains down the legs went away. The numbness in his hands is gone. His swallowing is basically back to normal. He does have some pain in the back of the neck and down along the right trapezius but otherwise his range of motion is better than it was before surgery. His wound is healed up beautifully. We discussed activity guidelines, restrictions and expectations after ACDF. With regard to his lumbar stenosis, in light of the fact that he is no longer having the claudicating symptoms he does not need to have the decompression. I did warn him that there is a good chance the symptoms may come back but for now we do not need to do the surgery. I will see him back in 6 weeks with a set of x-rays. Luis Miguel Anne MD, PhD [facility] Orders: Orders XR cervical spine 4V Today M47.12 - Other spondylosis with myelopathy, cervical region Coding Level of Care Code Global (44393) Diagnoses Degenerative arthritis of cervical spine with cord compression M47.12
--- OUTSIDE RECORDS SUMMARY | 2025-01-13 17:38 | XMS_ITS | Clinical Summary ---
Author Organization [address] Address [address] [place] [phone] Phone Care Team Providers Care Vp Patient Name Role Phone Nati Sanders MD Primary Care Provider [phone] Allergies Active Allergy Reactions Criticality Noted Date Comments Adhesive 01/21/2024 Oxycodone Wheezing 10/23/2020 Penicillins Anaphylaxis,Rash High 02/02/2015 Medications atenoloL (TENORMIN) 25 mg tablet TAKE ONE TABLET BY MOUTH EVERY DAY 90 tablet 4 Active doxycycline hyclate (VIBRA-TABS) 100 mg tablet Take 1 Tablet by mouth 2 times daily. 4 Active sertraline (ZOLOFT) 50 mg tablet Take one tablet daily 4 Active cholecalciferol (VITAMIN D-3) 25 mcg (1,000 unit) capsule Take 1 Capsule by mouth daily. 4 Active acetaminophen (TYLENOL 8 HOUR) 650 mg 8 hr tablet Take 1 Tablet by mouth 3 times daily as needed for Pain. 4 Active albuterol HFA (PROAIR HFA ; PROVENTIL HFA ; VENTOLIN HFA) 90 mcg/actuation inhaler Inhale 2 Puffs into the lungs every 4 hours. 2 Active blood-glucose meter kit Use to check blood sugar 2 times daily 3 Active multivitamin (MULTIPLE VITAMINS ORAL) Take 1 Tab by mouth daily. Active lisinopril-hydro CHLOROthiazide (PRINZIDE,ZESTOR ETIC) 20-25 mg per tablet TAKE ONE TABLET BY MOUTH EVERY DAY 90 tablet 1 5 Active blood-glucose meter kitIndications:D M (diabetes mellitus) type 2, uncontrolled, with ketoacidosis (CMS/HCC) Use daily or as directed for monitoring of diabetes. 1 each 5 026 Active glucose blood test stripIndications :DM (diabetes mellitus) type 2, uncontrolled, with ketoacidosis (CMS/HCC) Use as instructed 100 each 11 5 026 Active metFORMIN (GLUCOPHAGE) 500 mg tabletIndication s:DM (diabetes mellitus) type 2, uncontrolled, with ketoacidosis (CMS/HCC) Take 2 tablets (1,000 mg total) by mouth 2 (two) times a day with meals. 360 tablet 1 5 Active allopurinoL (ZYLOPRIM) 300 mg tablet TAKE ONE TABLET BY MOUTH TWICE A DAY 180 tablet 1 5 Active aspirin 81 mg EC tablet TAKE 1 TABLET BY MOUTH DAILY 90 tablet 2 5 Active simvastatin (ZOCOR) 20 mg tablet TAKE ONE TABLET BY MOUTH EVERY DAY AT BEDTIME 90 tablet 1 5 Active lancets lancets Use to test blood sugars twice daily 100 each 1 5 Active lancets lancets Use to check blood sugar 2 times daily 3 025 Discontin ued(Reord er) Active Problems Problem Noted Date Diagnosed Date Type 2 diabetes mellitus wit h hyperglycemia, without long-term current use of insulin 08/07/2022 Stage 3 chronic kidney disease 03/29/2022 Elevated serum creatinine 09/25/2020 DM (diabetes mellitus) type 2, uncontrolled, with ketoacidosis 09/04/2020 Depression 06/09/2019 Gastroesophageal reflux disease with esophagitis 12/01/2018 Normocytic anemia 05/28/2018 Proteinuria 05/28/2018 Thrombocytopenia 05/28/2018 Obstructive sleep apnea 10/03/2017 Overview (10/15/2024): [facility] Home Polysomnogram: Date 10/01/2017; AHI 18, Unclassified apneas 0; Obstructive apneas 34; Central apneas 5; Mixed apneas 0; hypopneas 121; average oxygen saturation 93% (lowest 68% with saturations <88% for 5% or more of study) Lumbar spondylolysis 04/02/2017 Anxiety state 07/21/2015 SNHL (sensorineural hearing loss) 07/18/2015 HTN (hypertension) 05/17/2015 Hyperlipidemia 05/17/2015 Gout 05/17/2015 Asthma 05/17/2015 LFT elevation 05/17/2015 Microalbuminuria 05/17/2015 Cervical spine disease 03/24/2015 Immunizations Name Administration Dates Next Due Influenza Quadravalent, MDCK , 0.5ml, preservative free (Flucelvax) 6mo and older 12/12/2023,08/07/2022,11/06/2018 Influenza trivalent, 0.5mL, preservative free (Fluarix; FluLaval; Fluzone) ages 6mo and older (Afluria) 3 years and older 07/28/2015,08/27/2014 Influenza, Unspecified 07/16/2020 Moderna SARS-CoV-2 COVID-19, mRNA, LNP-S, preservative free 11/02/2021 Tdap Tetanus diptheria acell ular pertussis (Boostrix; Adacel) 7yo and older 05/16/2023,07/29/2012 Surgical History Surgery Date Site/Laterality Comments OTHER SURGICAL HISTORY 2011 Right PROCEDURE: RI ARTHROTOMY W/MENISCUS REPAIR KNEE HERNIA REPAIR Right PROCEDURE: REPAIR INGUINAL HERNIA Medical History Medical History Date Comments Gout DX:Gout HTN (hypertension) DX:HTN (hyper tension) Hyperlipidemia DX:Hyperlipidemi a Cervical spine disease 03/24/2015 DX:Cervic al spine disease Asthma 05/17/2015 DX:Asthma Low back pain radiating to both legs 02/08/2015 DX:Low back pain radiating to both legs Cervicalgia 02/08/2015 DX:Cervicalgia; COMMENT: Numbness in the left thumb. Microalbuminuria 05/17/2015 DX:Microalbumin uria LFT elevation 05/17/2015 DX:LFT elevation Renal insufficiency DX:Renal ins ufficiency Family History Medical History Relation Name Comments Other: gout Father Colon cancer Mother spinal stenosis Autoimmune disease Neg Hx Breast cancer Neg Hx Colon cancer Neg Hx Coronary artery disease Neg Hx Diabetes Neg Hx Heart attack Neg Hx Heart failure Neg Hx Hyperlipidemia Neg Hx Hypertension Neg Hx Mental illness Neg Hx Prostate cancer Neg Hx Sleep apnea Neg Hx Thyroid disease Neg Hx Relation Name Status Comments Father Mother Social History Tobacco Use Types Packs/Day Years Used Date Smoking Tobacco: Former Cigarettes 0.3 5 0 10/27/1981 - 10/27/1986 Smokeless Tobacco: Former Quit: 10/27/1985 Alcohol Use Standard Drinks/Week Comments Yes 0 (1 standard drink = 0.6 oz pur e alcohol) Sex and Gender Information Value Date Recorded Sex Assigned at Not on file Legal Sex Male 5:03 PM EST Gender Identity Not on file Sexual Orientation Not on file Obstetrics History Last Filed Vital Signs Vital Sign Reading Time Taken Comments Blood Pressure 120/68 03/12/2024 9:53 AM EDT Pulse 80 03/12/2024 9:53 AM EDT Temperature - - Respiratory Rate - - Oxygen Saturation - - Inhaled Oxygen Concentration - - Weight 122 kg (268 lb 6.4 oz) 03/12/2024 9:53 AM EDT Height 177.8 cm (5' 10 ) 03/12/2024 9:53 AM EDT Body Mass Index 38.51 03/12/2024 9:53 AM EDT Plan of Treatment Upcoming Encounters Date Type Department Care Team (Late st Contact Info) Description 04/13/2025 9:30 AM EDT Office Visit Adult Medicine [address] [phone] Nati Sanders MD [address] [place] [id number] Health Maintenance Due Date Last Done Comments Diabetes: Annual Foot Exam 1974 Diabetes: Annual Retina Eye Exam 1974 Pneumococcal Vaccine: 50+ Years (1 of 2 - PCV) 1983 Pneumococcal Vaccine: Pediatrics (0 to 5 Years) and At-Risk Patients (6 to 64 Years) (1 of 2 - PCV) 1983 Zoster Vaccines (1 of 2) 2014 HIV Screening 10/05/2022 Social Influencers of Health Screening 10/05/2022 RSV Immunization Patients 60+ Years Old (1 - Risk 60-74 years 1-dose series) 2024 COVID-19 Vaccine ( season) 2024 11/02/2021, 12/01/2020, 10/31/2020 Influenza Vaccine (#1) 2024 , 08/07/2022, 07/16/2020, Additional history exists Depression Screening 12/13/2024 12/13/2023 Diabetes: Blood Sugar Control Test (HGBA1C) 04/25/2025 10/25/2024, 10/15/2023 Colorectal Cancer Screening: Colonoscopy 10/05/2025 10/05/2020 Diabetes: Annual Urine Albumin-Creatinine Ratio (uACR) 10/25/2025 10/25/2024, 12/04/2022 Diabetes: Annual GFR (Glomerular Filtration Rate) 10/25/2025 10/25/2024, 10/15/2023 Hypertension/CHF/CAD Annual BMP Blood Test 10/25/2025 10/25/2024, 10/15/2023 Cholesterol Screening (Lipid Panel) 10/25/2029 10/25/2024, 05/14/2023 DTaP,Tdap,and Td Vaccines (3 - Td or Tdap) 05/16/2033 05/16/2023, 07/29/2012 Hepatitis C Screening Completed 05/11/2016 HIB Vaccines Aged Out No longer eligi ble based on patient's age to complete this topic HPV Vaccines Aged Out No longer eligi ble based on patient's age to complete this topic Hepatitis A Vaccines Aged Out No long er eligible based on patient's age to complete this topic Hepatitis B Vaccines Aged Out No long er eligible based on patient's age to complete this topic IPV Vaccines Aged Out No longer eligi ble based on patient's age to complete this topic MMR Vaccines Aged Out No longer eligi ble based on patient's age to complete this topic Meningococcal ACWY Vaccine Aged Out N o longer eligible based on patient's age to complete this topic Meningococcal B Vacine Aged Out No lo nger eligible based on patient's age to complete this topic RSV Immunization Patients Under 20 months Aged Out No longer eligible based on patient's age to complete this topic Varicella Vaccines Aged Out No longer eligible based on patient's age to complete this topic Procedures Procedure Name Priority Date/Time Associated Diagnosis Comments EXTERNAL XRAY REPORT 12/23/2024 EXTERNAL XRAY REPORT 12/23/2024 THYROID STIMULATING HORMONE Routine 10/25/2024 10:15 AM EST SNHL (sensorineural hearing loss) Asthma Obstructive sleep apnea Gastroesophageal reflux disease with esophagitis HTN (hypertension) Stage 3 chronic kidney disease (CMS/HCC) Lumbar spondylolysis Hyperlipidemia Gout DM (diabetes mellitus) type 2, uncontrolled, with ketoacidosis (CMS/HCC) Type 2 diabetes mellitus with hyperglycemia, without long-term current use of insulin (CMS/HCC) Thrombocytopenia ([facility]/HCC) Normocytic anemia Microalbuminuria Elevated serum creatinine Cervical spine disease Anxiety state Depression LFT elevation Proteinuria VITAMIN D 25 HYDROXY Routine 10/25/2024 10:15 AM EST SNHL (sensorineural hearing loss) Asthma Obstructive sleep apnea Gastroesophageal reflux disease with esophagitis HTN (hypertension) Stage 3 chronic kidney disease ([facility]/HCC) Lumbar spondylolysis Hyperlipidemia Gout DM (diabetes mellitus) type 2, uncontrolled, with ketoacidosis ([facility]/HCC) Type 2 diabetes mellitus with hyperglycemia, without long-term current use of insulin ([facility]/HCC) Thrombocytopenia ([facility]/HCC) Normocytic anemia Microalbuminuria Elevated serum creatinine Cervical spine disease Anxiety state Depression LFT elevation Proteinuria VITAMIN B12 Routine 10/25/2024 10:15 AM EST SNHL (sensorineural hearing loss) Asthma Obstructive sleep apnea Gastroesophageal reflux disease with esophagitis HTN (hypertension) Stage 3 chronic kidney disease ([facility]/HCC) Lumbar spondylolysis Hyperlipidemia Gout DM (diabetes mellitus) type 2, uncontrolled, with ketoacidosis ([facility]/HCC) Type 2 diabetes mellitus with hyperglycemia, without long-term current use of insulin ([facility]/HCC) Thrombocytopenia ([facility]) Normocytic anemia Microalbuminuria Elevated serum creatinine Cervical spine disease Anxiety state Depression LFT elevation Proteinuria PROSTATE SPECIFIC ANTIGEN SCREEN Routine 10/25/2024 10:15 AM EST SNHL (sensorineural hearing loss) Asthma Obstructive sleep apnea Gastroesophageal reflux disease with esophagitis HTN (hypertension) Stage 3 chronic kidney disease ([facility]/HCC) Lumbar spondylolysis Hyperlipidemia Gout DM (diabetes mellitus) type 2, uncontrolled, with ketoacidosis ([facility]/HCC) Type 2 diabetes mellitus with hyperglycemia, without long-term current use of insulin ([facility]/HCC) Thrombocytopenia ([facility]/HCC) Normocytic anemia Microalbuminuria Elevated serum creatinine Cervical spine disease Anxiety state Depression LFT elevation Proteinuria COMPREHENSIVE METABOLIC PANEL Routine 10/25/2024 10:15 AM EST SNHL (sensorineural hearing loss) Asthma Obstructive sleep apnea Gastroesophageal reflux disease with esophagitis HTN (hypertension) Stage 3 chronic kidney disease (CMS/HCC) Lumbar spondylolysis Hyperlipidemia Gout DM (diabetes mellitus) type 2, uncontrolled, with ketoacidosis (CMS/HCC) Type 2 diabetes mellitus with hyperglycemia, without long-term current use of insulin (CMS/HCC) Thrombocytopenia (CMS/HCC) Normocytic anemia Microalbuminuria Elevated serum creatinine Cervical spine disease Anxiety state Depression LFT elevation Proteinuria MICROALBUMIN CREATININE URINE RATIO Routine 10/25/2024 10:15 AM EST SNHL (sensorineural hearing loss) Asthma Obstructive sleep apnea Gastroesophageal reflux disease with esophagitis HTN (hypertension) Stage 3 chronic kidney disease ([facility]/HCC) Lumbar spondylolysis Hyperlipidemia Gout DM (diabetes mellitus) type 2, uncontrolled, with ketoacidosis ([facility]/HCC) Type 2 diabetes mellitus with hyperglycemia, without long-term current use of insulin ([facility]/HCC) Thrombocytopenia ([facility]/HCC) Normocytic anemia Microalbuminuria Elevated serum creatinine Cervical spine disease Anxiety state Depression LFT elevation Proteinuria LIPID PANEL WITH REFLEX TO DIRECT LDL Routine 10/25/2024 10:15 AM EST SNHL (sensorineural hearing loss) Asthma Obstructive sleep apnea Gastroesophageal reflux disease with esophagitis HTN (hypertension) Stage 3 chronic kidney disease ([facility]/HCC) Lumbar spondylolysis Hyperlipidemia Gout DM (diabetes mellitus) type 2, uncontrolled, with ketoacidosis ([facility]/HCC) Type 2 diabetes mellitus with hyperglycemia, without long-term current use of insulin ([facility]/HCC) Thrombocytopenia ([facility]/HCC) Normocytic anemia Microalbuminuria Elevated serum creatinine Cervical spine disease Anxiety state Depression LFT elevation Proteinuria HEMOGLOBIN A1C Routine 10/25/2024 10:15 AM EST SNHL (sensorineural hearing loss) Asthma Obstructive sleep apnea Gastroesophageal reflux disease with esophagitis HTN (hypertension) Stage 3 chronic kidney disease ([facility]/HCC) Lumbar spondylolysis Hyperlipidemia Gout DM (diabetes mellitus) type 2, uncontrolled, with ketoacidosis ([facility]/HCC) Type 2 diabetes mellitus with hyperglycemia, without long-term current use of insulin ([facility]/HCC) Thrombocytopenia ([facility]/HCC) Normocytic anemia Microalbuminuria Elevated serum creatinine Cervical spine disease Anxiety state Depression LFT elevation Proteinuria DEPRESSION SCREENING Routine 12/13/2023 COLONOSCOPY Routine 10/05/2020 HEPATITIS C SCREENING Routine 05/11/2016 from Last 3 Months or Most Recently Relevant to Health Maintenance Results * External Xray Report (12/23/2024) Only the most recent of2 resultswithin the time period is included. Anatomical Region Laterality Modality Radiographic Angela ging us Provider [facility] XR PROCEDURES Final Result * Prostate specific antigen screen (10/25/2024 10:15 AM EST) PSA 0.71 0.00 - 4.00 ng/mL LAB CHEMISTRY METHOD 10/25/2024 12:29 PM EST [facility] Blood Venous blood specimen / Unknown Venipuncture / Unknown 10/25/2024 10:15 AM EST 10/25/2024 10:15 AM EST Narrative [facility] - 10/25/2024 12:29 PM EST The Siemens Advia Centaur Chemiluminescent Immunoassay is used. Results obtained with different assay methods or kits cannot be used interchangeably. Results cannot be interpreted as absolute evidence of the presence or absence of malignant disease. us Nati Sanders MD LAB BLOOD ORDERABLES Final Resul t [facility] [address] [place] [address], * (ABNORMAL) Lipid panel with reflex to direct LDL (10/25/2024 10:15 AM EST) Cholesterol 138 0 - 200 mg/dL LAB CHEMISTRY METHOD 10/25/2024 12:45 PM EST [facility] Triglycerides 269(H) 0 - 150 mg/dL LAB CHEMISTRY METHOD 10/25/2024 12:45 PM [facility] HDL 31(L) >=40 mg/dL LAB CHEMISTRY METHOD 10/25/2024 12:45 PM [facility] LDL Calculated 53 0 - 100 mg/dL LAB CHEMISTRY METHOD 10/25/2024 12:45 PM [facility] VLDL Cholesterol Albino 53.8 mg/dL LAB CHEMISTRY METHOD 10/25/2024 12:45 PM [facility] Non HDL Chol. (LDL+VLDL) 107 <145 mg/dL LAB CHEMISTRY METHOD 10/25/2024 12:45 PM [facility] Chol/HDL Ratio 4.5(H) 0.0 - 4.4 LAB CHEMISTRY METHOD 10/25/2024 12:45 PM [facility] Blood Venous blood specimen / Unknown Venipuncture / Unknown 10/25/2024 10:15 AM EST 10/25/2024 10:15 AM EST us Nati Sanders MD LAB BLOOD ORDERABLES Final Resul t [facility] [address] [place] [address], * (ABNORMAL) Microalbumin creatinine urine ratio (10/25/2024 10:15 AM EST) Creatinine, Urine 271.0 mg/dL LAB CHEMISTRY METHOD 10/25/2024 1:32 PM [facility] Microalb, Ur 1,410.0(H ) 0.0 - 29.0 mg/L LAB CHEMISTRY METHOD 10/25/2024 1:32 PM [facility] Microalb/Crea t Ratio 520(H) <30 mg/g creat LAB CHEMISTRY METHOD 10/25/2024 1:32 PM [facility] Urine Urine specimen obtained by clean catch procedure / Unknown Non-blood Collection / Unknown 10/25/2024 10:15 AM EST 10/25/2024 10:15 AM EST Nati Sanders MD LAB URINE ORDERABLES Final Resul t Performing Organization Address [facility] Co de Phone Number [facility] [address] [place] [address], [place] [phone] * Vitamin D 25 hydroxy (10/25/2024 10:15 AM EST) [facility] Vit D, 25-Hydroxy 55.2 30.0 - 80.0 ng/mL LAB CHEMISTRY METHOD 10/25/2024 12:29 PM EST [facility] Blood Venous blood specimen / Unknown Venipuncture / Unknown 10/25/2024 10:15 AM EST 10/25/2024 10:15 AM EST Kalen GOSS LAB BLOOD ORDERABLES Fin al Result Performing Organization Address [facility] de Phone Number [facility] [address] [place] [address], [place] [phone] * Thyroid stimulating hormone (10/25/2024 10:15 AM EST) [facility] TSH 1.39 0.40 - 4.00 mcIU/mL LAB CHEMISTRY METHOD 10/25/2024 12:30 PM EST [facility] Blood Venous blood specimen / Unknown Venipuncture / Unknown 10/25/2024 10:15 AM EST 10/25/2024 10:15 AM EST us Kalen GOSS LAB BLOOD ORDERABLES Fin al Result Performing Organization Address [facility]/ZIP Co de Phone Number [facility] [address] [place] [address], [place] [phone] * (ABNORMAL) Hemoglobin A1c (10/25/2024 10:15 AM EST) [facility] Hemoglobin A1C 8.4(H) <6.5 % LAB CHEMISTRY METHOD 10/25/2024 2:00 PM EST [facility] Mean Bld Glu Estim. 194 mg/dL LAB CHEMISTRY METHOD 10/25/2024 2:00 PM EST [facility] Blood Venous blood specimen / Unknown Venipuncture / Unknown 10/25/2024 10:15 AM EST 10/25/2024 10:15 AM EST Nati Sanders MD LAB BLOOD ORDERABLES Final Resul t Performing Organization Address City/[facility]/ZIP Co de Phone Number [facility] [address] [place] [address], [place] [phone] * Vitamin B12 (10/25/2024 10:15 AM EST) Pathologist [facility] Vitamin B-12 505 250 - 900 pcg/mL LAB CHEMISTRY METHOD 10/25/2024 12:45 PM [facility] Blood Venous blood specimen / Unknown Venipuncture / Unknown 10/25/2024 10:15 AM EST 10/25/2024 10:15 AM EST Kalen GOSS LAB BLOOD ORDERABLES Fin al Result Performing Organization Address [facility]/ZIP Co de Phone Number [facility] [address] [place] [address], [place] [phone] * (ABNORMAL) Comprehensive metabolic panel (10/25/2024 10:15 AM EST) Pathologist [facility] Sodium 135 133 - 145 mmol/L LAB CHEMISTRY METHOD 10/25/2024 12:45 PM EST [facility] Potassium 3.8 3.5 - 5.5 mmol/L LAB CHEMISTRY METHOD 10/25/2024 12:45 PM [facility] Chloride 103 96 - 110 mmol/L LAB CHEMISTRY METHOD 10/25/2024 12:45 PM EST [facility] CO2 26 21 - 32 mmol/L LAB CHEMISTRY METHOD 10/25/2024 12:45 PM [facility] Anion Gap 6 3 - 11 LAB CHEMISTRY METHOD 10/25/2024 12:45 PM [facility] Glucose 255(H) 70 - 100 mg/dL LAB CHEMISTRY METHOD 10/25/2024 12:45 PM [facility] BUN 19 5 - 25 mg/dL LAB CHEMISTRY METHOD 10/25/2024 12:45 PM [facility] Creatinine 1.39(H) 0.70 - 1.30 mg/dL LAB CHEMISTRY METHOD 10/25/2024 12:45 PM [facility] eGFR 58(L) >=60 mL/min/1. 73m2 LAB CHEMISTRY METHOD 10/25/2024 12:45 PM [facility] Comment:Calculation based on the??Chronic Kidney Disease Epidemiology Collaboration (CKD-EPI) equation refit??without adjustment for race. BUN/Creatinine Ratio 13.7 LAB CHEMISTRY METHOD 10/25/2024 12:45 PM [facility] Calcium 10.1 8.5 - 10.5 mg/dL LAB CHEMISTRY METHOD 10/25/2024 12:45 PM [facility] AST (SGOT) 56(H) 10 - 42 unit/L LAB CHEMISTRY METHOD 10/25/2024 12:45 PM [facility] ALT (SGPT) 70(H) 10 - 60 unit/L LAB CHEMISTRY METHOD 10/25/2024 12:45 PM [facility] Alkaline Phosphatase 146(H) 42 - 121 unit/L LAB CHEMISTRY METHOD 10/25/2024 12:45 PM [facility] Total Protein 7.6 6.0 - 8.0 g/dL LAB CHEMISTRY METHOD 10/25/2024 12:45 PM [facility] Albumin 3.6 3.2 - 5.0 g/dL LAB CHEMISTRY METHOD 10/25/2024 12:45 PM [facility] Total Bilirubin 1.2 0.0 - 1.4 mg/dL LAB CHEMISTRY METHOD 10/25/2024 12:45 PM EST [facility] Blood Venous blood specimen / Unknown Venipuncture / Unknown 10/25/2024 10:15 AM EST 10/25/2024 10:15 AM EST Nati Sanders MD LAB BLOOD ORDERABLES Final Resul t [facility] [address] [place] [address], [place] [phone] * Depression Screening (12/13/2023) Pathologist [facility] Depression Screening abstracted [facility] Provider HEALTH MAINTENANCE Final Result * Colonoscopy (10/05/2020) Pathologist [facility] Colonoscopy no interpretation , abstracted Anatomical Region Laterality Modality Other Historical Provider HEALTH MAINTENANCE Final Result * Hepatitis C Screening (05/11/2016) Pathologist [facility] Hepatitis C Screening abstracted [facility] Provider HEALTH MAINTENANCE Final Result from Last 3 Months or Most Recently Relevant to Health Maintenance Insurance MEDICAID - [place] [employer] Care Teams Vp Patient Relationship Specialty Start Date End Date Nati Sanders MD [address] [place] [id number] PCP - General Internal Medicine 11/23/24
--- OUTSIDE RECORDS SUMMARY | 2025-01-13 17:38 | XMS_ITS | Clinical Summary ---
Author Organization [facility] Address [address] [place] [address] Care Team Providers Care Valve Mechanic Name Role Phone Unavailable Primary Care Provider Unavailabl e Immunizations Name Administration Dates Next Due Covid-19 (Moderna 12+) 100mcg/0.5mL dosage 12/01,10/31/2020 Social History Tobacco Use Types Packs/Day Years Used Date Smoking Tobacco: Never Assessed Sex and Gender Information Value Date Recorded Sex Assigned at Male 10/31/2020 3:01 PM EST Gender Identity Not on file Sexual Orientation Not on file Plan of Treatment Health Maintenance Due Date Last Done Comments Hepatitis C Screening 1964 Depression Screening 1976 Preventative Health Evaluation 1982 DTap / Tdap / Td (1 - Tdap) 1983 Colon Cancer Screening (Colonoscopy) 2009 Shingrix-Zoster Vaccine (1 o f 2) 2014 COVID-19 Vaccine (3 2023-2 5 season) 2024 12/01/2020, 10/31/2020 Influenza Vaccine (#1) 2024 9, 07/28/2015, 08/27/2014 RSV Adult > 60+ Yrs or (1 - 1-dose 75+ series) 2039 Hepatitis B Vaccines Aged Out No long er eligible based on patient's age to complete this topic Pneumococcal Vaccine Aged Out No long er eligible based on patient's age to complete this topic RSV Ped < 20 months Aged Out No longe r eligible based on patient's age to complete this topic Toribio Rowe Personal/Famil y Self 1965 [address] [place] [id number]
== END 2025-01-13 15:51 | disposition home or self-care (01) ==
LOC: HO.HNS 15:12
PROVIDERS: PCP Internal Medicine; Visit Provider Physician Assistant
DX: M47.12 Other spondylosis with myelopathy, cervical region (principal)
CPT/HCPCS: 99024

== ENCOUNTER 2025-02-24 14:30 | Outpatient (REF) | payer OTHER, SELFPAY ==
--- NOTE | ~2025-02-24 | XR_ITS ---
EXAMINATION: XR CERVICAL SPINE CLINICAL INFORMATION: M47.12 - Other spondylosis with myelopathy, cervical region COMPARISON: None available. Correlation made with MRI cervical 09/08/2024. TECHNIQUE: views of the cervical spine, inclusive of flexion and extension views, were obtained. FINDINGS: There is no scoliosis. There is straightening of the normal lordosis. There is normal bone mineralization. Atlantoaxial joint and C1-2 articulation are intact and aligned. There has been anterior fusion and discectomy of C5-6 and C6-7 with disc prosthesis and oblique endplate screws. The hardware appears intact, well seated, without evidence of loosening. Mild to moderate disc degeneration at C3-4 and C4-5, as well as C7-T1. There is normal facet alignment, however there is left greater than right multilevel degenerative facet arthropathy, worst at C4-5 on the left. Neutral view demonstrates 3 mm degenerative anterolisthesis C4 on C5. Trace anterolisthesis on C7. No additional subluxation. On extension, there is no change in the alignment. On flexion, there is no change in the alignment. There is no evidence of instability. XR/XR cervical spine 4V IMPRESSION: 1. Anterior fusion and discectomy of C5-6 and C6-7 without complication. 2. There is a 3 mm degenerative anterolisthesis of C4 on C5, without evidence of instability on flexion and extension views. 3. Moderate multilevel spondylosis as described. Electronically signed by: Anil Reddy MD 02/25/2025 11:43 AM EDT
--- OUTSIDE RECORDS SUMMARY | 2025-02-24 16:36 | XMS_ITS | Clinical Summary ---
Author Organization [address] Address [address] [place] [phone] Phone Care Team Providers Care Spinneret Person Name Role Phone Nati Sanders MD Primary Care Provider [phone] Allergies Active Allergy Reactions Criticality Noted Date Comments Adhesive 01/21/2024 Oxycodone Wheezing 10/23/2020 Penicillins Anaphylaxis,Rash High 02/02/2015 Medications doxycycline hyclate (VIBRA-TABS) 100 mg tablet Take 1 Tablet by mouth 2 times daily. 03/12/20 24 Active sertraline (ZOLOFT) 50 mg tablet Take one tablet daily 12/24/19 24 Active cholecalciferol (VITAMIN D-3) 25 mcg (1,000 unit) capsule Take 1 Capsule by mouth daily. 12/12/19 24 Active acetaminophen (TYLENOL 8 HOUR) 650 mg 8 hr tablet Take 1 Tablet by mouth 3 times daily as needed for Pain. 12/12/19 24 Active albuterol HFA (PROAIR HFA ; PROVENTIL HFA ; VENTOLIN HFA) 90 mcg/actuation inhaler Inhale 2 Puffs into the lungs every 4 hours. 03/28/20 22 Active blood-glucose meter kit Use to check blood sugar 2 times daily 01/03/20 23 Active multivitamin (MULTIPLE VITAMINS ORAL) Take 1 Tab by mouth daily. Active lisinopril-hydro CHLOROthiazide (PRINZIDE,ZESTOR ETIC) 20-25 mg per tablet TAKE ONE TABLET BY MOUTH EVERY DAY 90 tablet 1 11/11/19 25 Active blood-glucose meter kitIndications:D M (diabetes mellitus) type 2, uncontrolled, with ketoacidosis [place] [facility] V28) Use daily or as directed for monitoring of diabetes. 1 each 11/11/19 25 026 Active glucose blood test stripIndications :DM (diabetes mellitus) type 2, uncontrolled, with ketoacidosis ([facility] [place] [place], [facility] [place] Use as instructed 100 each 11 11/11/19 25 026 Active metFORMIN (GLUCOPHAGE) 500 mg tabletIndication s:DM (diabetes mellitus) type 2, uncontrolled, with ketoacidosis ([facility] [place] [place], [facility] V28) Take 2 tablets (1,000 mg total) by mouth 2 (two) times a day with meals. 360 tablet 1 11/11/19 25 Active allopurinoL (ZYLOPRIM) 300 mg tablet TAKE ONE TABLET BY MOUTH TWICE A DAY 180 tablet 1 11/22/19 25 Active aspirin 81 mg EC tablet TAKE 1 TABLET BY MOUTH DAILY 90 tablet 2 11/21/19 25 Active simvastatin (ZOCOR) 20 mg tablet TAKE ONE TABLET BY MOUTH EVERY DAY AT BEDTIME 90 tablet 1 12/06/19 25 Active lancets lancets Use to test blood sugars twice daily 100 each 1 01/14/20 25 Active atenoloL (TENORMIN) 25 mg tablet TAKE ONE TABLET BY MOUTH EVERY DAY 90 tablet 02/04/20 25 Active atenoloL (TENORMIN) 25 mg tablet TAKE ONE TABLET BY MOUTH EVERY DAY 90 tablet 10/07/20 24 025 Discontinued Active Problems Problem Noted Date Diagnosed Date Type 2 diabetes mellitus wit h hyperglycemia, without long-term current use of insulin ([facility] [place] [facility] [place] 08/07/2022 Stage 3 chronic kidney disease ([facility] [place], [facility] V28) 03/29/2022 Elevated serum creatinine 09/25/2020 DM (diabetes mellitus) type 2, uncontrolled, with ketoacidosis [place] [place] [place], [facility] [place]) 09/04/2020 Depression 06/09/2019 Gastroesophageal reflux disease with esophagitis 12/01/2018 Normocytic anemia 05/28/2018 Proteinuria 05/28/2018 Thrombocytopenia ([facility] [place] [place] 05/28/2018 Obstructive sleep apnea 10/03/2017 Overview (10/15/2024): [facility] Home Polysomnogram: Date 10/01/2017; AHI 18, [...] Comments OTHER SURGICAL HISTORY 2011 Right PROCEDURE: ID ARTHROTOMY W/MENISCUS REPAIR KNEE HERNIA REPAIR Right [...] 9:30 AM EDT Office Visit Adult Medicine [address] [phone] Nati Sanders MD [address] [place] [phone] Health Maintenance Due Date Last Done Comments [...] Influencers of Health Screening 10/05/2022 RSV Immunization Adult Patients (1 - Risk 60-74 years 1-dose series) 2024 COVID-19 Vaccine ( season) 2024 11/02/2021, 12/01/2020, 10/31/2020 Depression Screening 12/13/2024 12/13/2023 Diabetes: Blood Sugar Control Test (HGBA1C) 04/25/2025 10/25/2024, 10/15/2023 Influenza Vaccine (Season Ended) 2025 12/12/2023, 08/07/2022, 07/16/2020, Additional history exists Colorectal Cancer Screening: Colonoscopy 10/05/2025 10/05/2020 Diabetes: [...] age to complete this topic Meningococcal B Vaccine Aged Out No l onger eligible based on patient's age to complete this topic RSV Immunization Patients Under 20 months Aged Out No longer eligible based on patient's age to complete this topic Varicella Vaccines Aged Out No longer eligible based on patient's age to complete this topic Procedures Procedure Name Priority Date/Time Associated Diagnosis Comments RUBEOLA ANTIBODY IGG Routine 02/21/2025 10:39 AM EDT Antibody response exam MUMPS ANTIBODY IGG Routine 02/21/2025 10 :39 AM EDT Antibody response exam RUBELLA ANTIBODY IGG Routine 02/21/2025 10:39 AM EDT Antibody response exam EXTERNAL XRAY REPORT 12/23/2024 EXTERNAL XRAY REPORT 12/23/2024 MICROALBUMIN CREATININE URINE RATIO Routine 10/25/2024 10:15 AM EST SNHL (sensorineural hearing loss) Asthma Obstructive sleep apnea Gastroesophageal reflux disease with esophagitis HTN (hypertension) Stage 3 chronic kidney disease ([facility] [place] [place], [facility] [place]) Lumbar spondylolysis Hyperlipidemia Gout DM (diabetes mellitus) type 2, uncontrolled, with ketoacidosis ([facility] [place] [place], [facility] [place]28) Type 2 diabetes mellitus with hyperglycemia, without long-term current use of insulin ([facility] [place], [facility] V28) Thrombocytopenia [place] [place]) Normocytic anemia Microalbuminuria Elevated serum creatinine Cervical spine disease Anxiety state Depression LFT elevation Proteinuria COMPREHENSIVE METABOLIC PANEL Routine 10/25/2024 10:15 AM EST SNHL (sensorineural hearing loss) Asthma Obstructive sleep apnea Gastroesophageal reflux disease with esophagitis HTN (hypertension) Stage 3 chronic kidney disease ([facility] [place], [facility] V28) Lumbar spondylolysis Hyperlipidemia Gout DM (diabetes mellitus) type 2, uncontrolled, with ketoacidosis ([facility] [place] [place], [facility] V28) Type 2 diabetes mellitus with hyperglycemia, without long-term current use of insulin ([facility] [place], [facility] [place]) Thrombocytopenia [place] [place]) Normocytic anemia Microalbuminuria Elevated serum creatinine Cervical spine disease Anxiety state Depression LFT elevation Proteinuria HEMOGLOBIN A1C Routine 10/25/2024 10:15 AM EST SNHL (sensorineural hearing loss) Asthma Obstructive sleep apnea Gastroesophageal reflux disease with esophagitis HTN (hypertension) Stage 3 chronic kidney disease ([facility] V24, [facility] V28) Lumbar spondylolysis Hyperlipidemia Gout DM (diabetes mellitus) type 2, uncontrolled, with ketoacidosis ([facility] V24, [facility] V28) Type 2 diabetes mellitus with hyperglycemia, without long-term current use of insulin ([facility] V24, [facility] V28) Thrombocytopenia ([facility] V24) Normocytic anemia Microalbuminuria Elevated serum creatinine Cervical spine disease Anxiety state Depression LFT elevation Proteinuria LIPID PANEL WITH REFLEX TO DIRECT LDL Routine 10/25/2024 10:15 AM EST SNHL (sensorineural hearing loss) Asthma Obstructive sleep apnea Gastroesophageal reflux disease with esophagitis HTN (hypertension) Stage 3 chronic kidney disease ([facility] V24, [facility] V28) Lumbar spondylolysis Hyperlipidemia Gout DM (diabetes mellitus) type 2, uncontrolled, with ketoacidosis ([facility] V24, [facility] V28) Type 2 diabetes mellitus with hyperglycemia, without long-term current use of insulin ([facility] [place], [facility] V28) Thrombocytopenia ([facility] [place]) Normocytic anemia Microalbuminuria Elevated serum creatinine Cervical spine disease Anxiety state Depression LFT elevation Proteinuria DEPRESSION SCREENING Routine 12/13/2023 COLONOSCOPY Routine 10/05/2020 HEPATITIS C SCREENING Routine 05/11/2016 from Last 3 Months or Most Recently Relevant to Health Maintenance Results * Rubeola antibody IgG (02/21/2025 10:39 AM EDT) Rubeola IgG Positive Positive LAB CHEMISTRY METHOD 02/22/2025 8:49 AM EDT [facility] Rubeola IgG Antibody, measured 108.00 >=16.50 AU/mL LAB CHEMISTRY METHOD 02/22/2025 8:49 AM EDT [facility] Blood Venous blood specimen / Unknown Venipuncture / Unknown 02/21/2025 10:39 AM EDT 02/21/2025 10:39 AM EDT Narrative [facility] - 02/22/2025 8:49 AM EDT Interpretation >=16.5 AU/ml is considered to be consistent with Immunity us Nati Sanders MD LAB BLOOD ORDERABLES Final Resul t Performing Organization Address [facility] de Phone Number [facility] [address] [place] [address], [place] [phone] * Rubella antibody IgG (02/21/2025 10:39 AM EDT) Rubella IgG Quant 334.6 >=10.0 I Unit/mL LAB CHEMISTRY METHOD 02/21/2025 5:36 PM EDT [facility] Rubella IgG Antibody Interp Positive Positive LAB CHEMISTRY METHOD 02/21/2025 5:36 PM EDT [facility] Blood Venous blood specimen / Unknown Venipuncture / Unknown 02/21/2025 10:39 AM EDT 02/21/2025 10:39 AM EDT us Nati Sanders MD LAB BLOOD ORDERABLES Final Resul t Performing Organization Address [facility] de Phone Number [facility] [address] [place] [address], [place] [phone] * Mumps antibody IgG (02/21/2025 10:39 AM EDT) Mumps IgG Positive Positive LAB CHEMISTRY METHOD 02/22/2025 8:49 AM EDT [facility] Mumps IgG Antibody, measured >300.0 >=11.0 AU/mL LAB CHEMISTRY METHOD 02/22/2025 8:49 AM EDT [facility] Blood Venous blood specimen / Unknown Venipuncture / Unknown 02/21/2025 10:39 AM EDT 02/21/2025 10:39 AM EDT Narrative [facility] - 02/22/2025 8:49 AM EDT >=11 AU/mL is considered to be consistent with Immunity. Nati Sanders MD LAB BLOOD ORDERABLES Final Resul t [facility] [address] [place] [address], [place] [phone] * External Xray Report (12/23/2024) Only the most recent of2 resultswithin the time period is included. Anatomical Region Laterality Modality Radiographic Angela ging us Provider [facility] XR PROCEDURES Final Result * (ABNORMAL) Lipid panel with reflex to direct LDL (10/25/2024 10:15 AM EST) Cholesterol 138 0 - 200 mg/dL LAB CHEMISTRY METHOD 10/25/2024 12:45 PM [facility] Triglycerides 269(H) 0 - 150 mg/dL LAB CHEMISTRY METHOD 10/25/2024 12:45 PM [facility] HDL 31(L) >=40 mg/dL LAB CHEMISTRY METHOD 10/25/2024 12:45 PM EST [facility] LDL Calculated 53 0 - 100 mg/dL LAB CHEMISTRY METHOD 10/25/2024 12:45 PM EST [facility] VLDL Cholesterol Albino 53.8 mg/dL LAB CHEMISTRY METHOD 10/25/2024 12:45 PM [facility] Non HDL Chol. (LDL+VLDL) 107 <145 mg/dL LAB CHEMISTRY METHOD 10/25/2024 12:45 PM [facility] Chol/HDL Ratio 4.5(H) 0.0 - 4.4 LAB CHEMISTRY METHOD 10/25/2024 12:45 PM [facility] Blood Venous blood specimen / Unknown Venipuncture / Unknown 10/25/2024 10:15 AM EST 10/25/2024 10:15 AM EST Nati Sanders MD LAB BLOOD ORDERABLES Final Resul t [facility] [address] [place] [address], [place] [phone] * (ABNORMAL) Microalbumin creatinine urine ratio (10/25/2024 10:15 AM EST) Creatinine, Urine 271.0 mg/dL LAB CHEMISTRY METHOD 10/25/2024 1:32 PM EST [facility] Microalb, Ur 1,410.0(H ) 0.0 - 29.0 mg/L LAB CHEMISTRY METHOD 10/25/2024 1:32 PM EST [facility] Microalb/Crea t Ratio 520(H) <30 mg/g creat LAB CHEMISTRY METHOD 10/25/2024 1:32 PM EST [facility] Urine Urine specimen obtained by clean catch procedure / Unknown Non-blood Collection / Unknown 10/25/2024 10:15 AM EST 10/25/2024 10:15 AM EST Nati Sanders MD LAB URINE ORDERABLES Final Resul t [facility] [address] [place] [address], [place] [phone] * (ABNORMAL) Hemoglobin A1c (10/25/2024 10:15 AM EST) Hemoglobin A1C 8.4(H) <6.5 % LAB CHEMISTRY METHOD 10/25/2024 2:00 PM EST [facility] Mean Bld Glu Estim. 194 mg/dL LAB CHEMISTRY METHOD 10/25/2024 2:00 PM EST [facility] Blood Venous blood specimen / Unknown Venipuncture / Unknown 10/25/2024 10:15 AM EST 10/25/2024 10:15 AM EST us Nati Sanders MD LAB BLOOD ORDERABLES Final Resul t [facility] [address] [place] [address], * (ABNORMAL) Comprehensive metabolic panel (10/25/2024 10:15 AM EST) Sodium 135 133 - 145 mmol/L LAB CHEMISTRY METHOD 10/25/2024 12:45 PM [facility] Potassium 3.8 3.5 - 5.5 mmol/L LAB CHEMISTRY METHOD 10/25/2024 12:45 PM [facility] Chloride 103 96 - 110 mmol/L LAB CHEMISTRY METHOD 10/25/2024 12:45 PM [facility] CO2 26 21 - 32 mmol/L LAB CHEMISTRY METHOD 10/25/2024 12:45 PM [facility] Anion Gap 6 3 - 11 LAB CHEMISTRY METHOD 10/25/2024 12:45 PM [facility] Glucose 255(H) 70 - 100 mg/dL LAB CHEMISTRY METHOD 10/25/2024 12:45 PM [facility] BUN 19 5 - 25 mg/dL LAB CHEMISTRY METHOD 10/25/2024 12:45 PM [facility] Creatinine 1.39(H) 0.70 - 1.30 mg/dL LAB CHEMISTRY METHOD 10/25/2024 12:45 PM [facility] eGFR 58(L) >=60 mL/min/1. 73m2 LAB CHEMISTRY METHOD 10/25/2024 12:45 PM [facility] Comment:Calculation based on the??Chronic Kidney Disease Epidemiology Collaboration (CKD-EPI) equation refit??without adjustment for race. BUN/Creatinine Ratio 13.7 LAB CHEMISTRY METHOD 10/25/2024 12:45 PM [facility] Calcium 10.1 8.5 - 10.5 mg/dL LAB CHEMISTRY METHOD 10/25/2024 12:45 PM [facility] AST (SGOT) 56(H) 10 - 42 unit/L LAB CHEMISTRY METHOD 10/25/2024 12:45 PM [facility] ALT (SGPT) 70(H) 10 - 60 unit/L LAB CHEMISTRY METHOD 10/25/2024 12:45 PM [facility] Alkaline Phosphatase 146(H) 42 - 121 unit/L LAB CHEMISTRY METHOD 10/25/2024 12:45 PM [facility] Total Protein 7.6 6.0 - 8.0 g/dL LAB CHEMISTRY METHOD 10/25/2024 12:45 PM [facility] Albumin 3.6 3.2 - 5.0 g/dL LAB CHEMISTRY METHOD 10/25/2024 12:45 PM [facility] Total Bilirubin 1.2 0.0 - 1.4 mg/dL LAB CHEMISTRY METHOD 10/25/2024 12:45 PM [facility] Blood Venous blood specimen / Unknown Venipuncture / Unknown 10/25/2024 10:15 AM EST 10/25/2024 10:15 AM EST Nati Sanders MD LAB BLOOD ORDERABLES Final Resul t [facility] [address] [place] [address], * Depression Screening (12/13/2023) [facility] Depression Screening abstracted Historical Trista MCINTOSH HEALTH MAINTENANCE Final Result * Colonoscopy (10/05/2020) [facility] Colonoscopy no interpretation , abstracted Anatomical Region Laterality Modality Other Wild Weston MD HEALTH MAINTENANCE Final Result * Hepatitis C Screening (05/11/2016) [facility] Hepatitis C Screening abstracted Wild Weston MD HEALTH MAINTENANCE Final Result from Last 3 Months or Most Recently Relevant to Health Maintenance Insurance MEDICAID - [place] [employer] Care Teams Spinneret Person Relationship Specialty Start Date End Date Nati Sanders MD [address] [place] [id number] PCP - General Internal Medicine 11/23/24
--- OUTSIDE RECORDS SUMMARY | 2025-02-24 16:36 | XMS_ITS | Clinical Summary ---
Author Organization [facility] Address [address] [place] [address] Care Team Providers Care Surgical Aides Teacher Name Role Phone Unavailable Primary Care Provider [...] Personal/Famil y Self 1965 [address] [address]
== END 2025-02-24 14:31 | disposition home or self-care (01) ==
LOC: HO.HOSX 14:30
PROVIDERS: Visit Provider Physician Assistant
DX: M47.12 Other spondylosis with myelopathy, cervical region (principal)
CPT/HCPCS: 72050

== ENCOUNTER → 2025-02-24 14:30 | Outpatient (BNV) | payer OTHER, SELFPAY | PROVIDERS: Visit Provider Radiology Diagnostic Radiology | DX: M43.12 Spondylolisthesis, cervical region (principal); M47.812 Spondylosis without myelopathy or radiculopathy, cervical region; Z98.1 Arthrodesis status | CPT/HCPCS: 72050 ==

== ENCOUNTER 2025-02-24 14:37 | Outpatient (AMB) | payer OTHER, SELFPAY ==
--- NOTE | 2025-02-24 14:44 | HO.SPINEOV ---
Intake Visit Reasons: 2nd post op with Xrays Intake Note: Mr. Rowe is here today for his 2nd post op with x-rays. 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 As we previously noted, he had an interesting response to the cervical fusion surgery in that it improved his sciatic pain is almost completely. Today he tells me however, he is starting to get some pain in his hamstrings with walking and having more difficulty standing for any length of time. He is very optimistic that doing physical therapy and strengthen his legs will help. I suspect this is just early return of the claudicating symptoms, but I agree with him that if he is not in enough pain to justify surgery there is no need to go through with the lumbar decompression surgery. Dr. Anne had previously offered him L2-3 and L4-5 decompression after his cervical fusion but in light of the improvement of the symptoms we have had this on hold. He is going to work with strengthening his legs and I will see him back in 3 months. Of note, he did have cervical x-rays today which look excellent, appears as though he is already fused the segments, so he has no restrictions on his activities. 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
--- OUTSIDE RECORDS SUMMARY | 2025-02-24 16:38 | XMS_ITS | Encounter Summary ---
Author Organization [employer] [facility] [facility] Address [address] [place] [address] Care Team Providers Care Pest Control Chemical Technician Name Role Phone Nati Sanders MD Primary Care Provider [phone] Encounter Details Date Type Department Care Team Description 08/11/2023 Ssrs Report Developer Report Medical Records [address] [place] [address] Bao Lopez MD Social History Tobacco Use Types Packs/Day Years Used Date Smoking Tobacco: Former Cigarettes 0.3 5 0 10/27/1981 - 10/27/1986 Smokeless Tobacco: Former Snuff, Chew Quit: 10/27/1985 Alcohol Use Standard Drinks/Week Comments Yes 0 (1 standard drink = 0.6 oz pur e alcohol) rare Sex Assigned at Date Recorded Not on file Job Start Date Occupation Industry Not on file Not on file Not on file documented as of this encounter Plan of Treatment Not on file documented as of this encounter Visit Diagnoses Not on filedocumented in this encounter Care Teams Pest Control Chemical Technician Relationship Specialty Start Date End Date Nati Sanders MD [address] [place] [address] PCP - General Internal Medicine 08/07/22 documented as of this encounter
--- OUTSIDE RECORDS SUMMARY | 2025-02-24 16:38 | XMS_ITS | Encounter Summary ---
Author Organization [employer] [facility] Address [address] [place] [address] Care Team Providers Care Jawbone Breaker Name Role Phone Nati Sanders MD Primary Care Provider [phone] Encounter Details Date Type Department Care Team Description 07/10/2023 Hospital Medical Records [address] [place] [id number] Bao Lopez MD Social History Tobacco Use [...] file Not on file Not on file COVID-19 Exposure Response Date Recorded In the last 10 days, have yo u been in contact with someone who was confirmed or suspected to have Coronavirus/COVID-19? No / Unsure 07/10/2023 1:17 PM EDT documented as of this encounter Plan of Treatment Not on file documented as of this encounter Visit Diagnoses Not on filedocumented in this encounter Care Teams Jawbone Breaker Relationship Specialty Start Date End Date Nati Sanders MD [address] [place] [id number] PCP - General Internal Medicine 08/07/22 documented as of this encounter
--- OUTSIDE RECORDS SUMMARY | 2025-02-24 16:38 | XMS_ITS | Encounter Summary ---
Author Organization [facility] Address [address] [place] [address] Care Team Providers Care Painter And Grader Cork Name Role Phone Toya Samuels MD Primary [facility] Provider [facility] Primary Care Provider [phone] Nati Sanders MD Primary Care Provider Encounter Details Date Type Department Care Team Description 10/06/2020 Orders Only Medical Records [address] [place] [address] Richard Hankins MD Social History Tobacco Use Types Packs/Day Years Used Date Smoking Tobacco: Former Cigarettes 0.3 5 0 10/27/1981 - 10/27/1986 Smokeless Tobacco: Former Snuff, Chew Quit: 10/27/1985 Alcohol Use Standard Drinks/Week Comments Not Asked 0 (1 standard drink = 0.6 oz pur e alcohol) Sex Assigned at Date Recorded Not on file Job Start Date Occupation Industry Not on file Not on file Not on file COVID-19 Exposure Response Date Recorded In the last month, have you been in contact with someone who was confirmed or suspected to have Coronavirus / COVID-19? No / Unsure 09/25/2020 9:39 AM EST documented as of this encounter Plan of Treatment Not on file documented as of this encounter Procedures Procedure Name Priority Date/Time Associated Diagnosis Comments OUTSIDE LAB Routine 10/05/2020 documented in this encounter Results * OUTSIDE LAB (10/05/2020) Richard Hankins MD LAB documented in this encounter Visit Diagnoses Not on filedocumented in this encounter Care Teams Painter And Grader Cork Relationship Specialty Start Date End Date Toya Samuels MD PCP - General Internal Medicine 02/02/19 02/20/21 Olivier Isaac MD [address] [place] [address] PCP - General Internal Medicine 02/21/21 08/06/22 Nati Sanders MD [address] [place] [address] PCP - General Internal Medicine 08/07/22 documented as of this encounter
--- OUTSIDE RECORDS SUMMARY | 2025-02-24 16:39 | XMS_ITS | Encounter Summary ---
Author Organization [facility] Address [address] [place] [address] Care Team Providers Care Cooker Chip Name Role Phone Olivier Isaac MD Primary Care Provider [phone] Afsaneh Valdez DO Primary Care Pro vider Unavailable Toya Samuels MD Primary Care Provider Unavaila ble Olivier Isaac MD Primary Care Provider [phone] Nati Sanders MD Primary Care Provider [phone] Encounter Details Date Type Department Care Team Description 02/27/2015 Pt. Non Urgent Medical Question Adult Medicine [address] [id number] Olivier Isaac MD [address] [place] [address] [phone] Social History Tobacco Use Types Packs/Day Years Used Date Smoking Tobacco: Former Smokeless Tobacco: Former Quit: 01/02/2009 Alcohol Use Standard Drinks/Week Comments Not Asked 0 (1 standard drink = 0.6 oz pur e alcohol) Sex Assigned at Date Recorded Not on file Job Start Date Occupation Industry Not on file Not on file Not on file documented as of this encounter Progress Notes * Emma Zuniga M.A. - 02/27/2015 1:53 PM EDTFrom: Luis Miguel Rowe To: Olivier Isaac MD Sent: 02/27/2015 1:46 PM EDT Subject: Back pain issue Hello- I am writing today regarding my issue with sciatica. I have been working with Dr. Carroll, and although he has helped me a great deal, I am having a great deal of trouble with intermittent leg pain and muscle tightness. Dr. Carroll suggested I use ibuprofen, which I do at 4 x 200 mg twice daily. My previous physician prescribed a muscle relaxant (cyclobenzaprine 10mg) for an issue with my neck on 12/16, and when I saw Geeta on my initial visit, she said I could still use this. Dr. Carroll will notdiscuss prescriptions, and I do not have an appointment with Dr Luciano until April. Do you have any other suggestions until I see you on March 24? documented in this encounter Plan of Treatment Not on file documented as of this encounter Visit Diagnoses Not on filedocumented in this encounter Care Teams Cooker Chip Relationship Specialty Start Date End Date Olivier Isaac MD [address] [place] [address] PCP - General Internal Medicine 02/01/15 04/23/15 Afsaneh Valdez DO [address] [place] [address] PCP - General Internal Medicine 04/24/15 02/01/19 Toya Samuels MD [address] [place], [place] [phone] PCP - General Internal Medicine 02/02/19 02/20/21 Olivier Isaac MD [address] [place] [address] PCP - General Internal Medicine 02/21/21 08/06/22 Nati Sanders MD [address] [place], [place] [phone] PCP - General Internal Medicine 08/07/22 documented as of this encounter
--- OUTSIDE RECORDS SUMMARY | 2025-02-24 16:39 | XMS_ITS | Encounter Summary ---
Author Organization [facility] Address [address] [place] [address] Care Team Providers Care Fork Truck Operator Name Role Phone Nati Sanders MD Primary Care Provider [phone] Encounter Details Date Type Department Care Team Description 07/11/2023 Nut Feeder Report Medical Records [address] [place] [address] Neto Jones MD Social History Tobacco Use Types Packs/Day [...] on filedocumented in this encounter Care Teams Fork Truck Operator Relationship Specialty Start Date End Date Nati Sanders MD [address] [place] [address] PCP - General Internal Medicine 08/07/22 documented as of this encounter
--- OUTSIDE RECORDS SUMMARY | 2025-02-24 16:39 | XMS_ITS | Encounter Summary ---
Author Organization [facility] Address [address] [place] [address] Care Team Providers Care Banking Supervisor Name Role Phone Afsaneh Valdez DO Primary Care Pro vider Unavailable Toya Samuels MD Primary Care Provider Unavaila Olivier Carrion MD Primary Care Provider [phone] Nati Sanders MD Primary Care Provider [phone] Encounter Details Date Type Department Care Team Description 10/03/2017 Orders Only Medical Records [address] [place] [address] Paul Wynn PA-C Social History Tobacco Use Types Packs/Day Years [...] Name Priority Date/Time Associated Diagnosis Comments OUTSIDE SLEEP STUDY Routine 10/01/2017 documented in this encounter Results * OUTSIDE SLEEP STUDY (10/01/2017) Paul Wynn PA-C PULMONOLOGY documented in this encounter Visit Diagnoses Not on filedocumented in this encounter Care Teams Banking Supervisor Relationship Specialty Start Date End Date Afsaneh Valdez DO PCP - General Internal Medicine 04/24/15 02/01/19 Toya Samuels MD PCP - General Internal Medicine 02/02/19 02/20/21 Olivier Isaac MD [address] [place] [address] PCP - General Internal Medicine 02/21/21 08/06/22 Nati Sanders MD [address] [place] [address] PCP - General Internal Medicine 08/07/22 documented as of this encounter
--- OUTSIDE RECORDS SUMMARY | 2025-02-24 16:39 | XMS_ITS | Encounter Summary ---
Author Organization [facility] Address [address] [place] [address] Care Team Providers Care Clinical Psychology Teacher Name Role Phone Afsaneh Valdez DO Primary Care Pro vider Unavailable Toya Samuels MD Primary Care Provider Unavaila ble Olivier Isaac MD Primary Care Provider [phone] Nati Sanders MD Primary Care Provider [phone] Encounter Details Date Type Department Care Team Description 09/19/2015 Night Triage Doc Medical Records [address] [place] [address] Abstract, Provider Social History Tobacco Use Types Packs/Day Years [...] on filedocumented in this encounter Care Teams Clinical Psychology Teacher Relationship Specialty Start Date End Date Afsaneh Valdez DO PCP - General Internal Medicine 04/24/15 02/01/19 Toya Samuels MD PCP - General Internal Medicine 02/02/19 02/20/21 Olivier Isaac MD [address] [place] [address] [id number] PCP - General Internal Medicine 02/21/21 08/06/22 Nati Sanders MD [address] [place] [address], [place] [address] PCP - General Internal Medicine 08/07/22 documented as of this encounter
--- OUTSIDE RECORDS SUMMARY | 2025-02-24 16:39 | XMS_ITS | Encounter Summary ---
Author Organization [facility] Address [address] [place] [address] Care Team Providers Care Reactor Fueling Supervisor Name Role Phone Afsaneh Valdez DO Primary Care Pro vider Unavailable Toya Samuels MD Primary Care Provider Unavaila Olivier Carrino MD Primary Care Provider [phone] Nati Sanders MD Primary Care Provider [phone] Reason for Referral * Specialist (Routine) - Authorized/Booked Specialty Diagnoses / Procedures Referred By Contthomas t Referred To Contact Physiatry Procedures REFERRAL TO SPEECH THERAPIST TECHNICIAN Afsaneh Valdez DO [address] [place] [address] Austin Luciano DO [address] [address] Referral ID Status Reason Start Date Expiration Date V isits Requested Visits Authorized [id number] Authorized/B ooked 06/14/2015 06/13/2016 6 6 * Specialist (Routine) - Authorized/Booked Specialty Diagnoses / Procedures Referred By Contthomas t Referred To Contact Neurosurgery Procedures REFERRAL TO NEUROSURGERY Afsaneh Valdez DO [address] [place] [address] Zana Harper [address] [place] [address] [address] [place] [address] Referral ID Status Reason Start Date Expiration Date V isits Requested Visits Authorized SEE NOTE Authorized/B ooked 06/14/2015 09/15/2015 1 1 Encounter Details Date Type Department Care Team Description 06/14/2015 Orders Only Adult Medicine [address] [address] Afsaneh Valdez DO Bilateral low back pain with sciatica, sciatica laterality unspecified; Abnormal MRI, spine Social History Tobacco Use Types Packs/Day Years [...] documented as of this encounter Visit Diagnoses Diagnosis Bilateral low back pain with sciatica, sciatica laterality unspecified Abnormal MRI, spine Other nonspecific (abnormal) findings on radiological and other examinations of body structure documented in this encounter Care Teams Reactor Fueling Supervisor Relationship Specialty Start Date End Date Afsaneh Valdez DO PCP - General Internal Medicine 04/24/15 02/01/19 Toya Samuels MD PCP - General Internal Medicine 02/02/19 02/20/21 Olivier Isaac MD [address] [place] [address] PCP - General Internal Medicine 02/21/21 08/06/22 Nati Sanders MD [address] [place] [address] PCP - General Internal Medicine 08/07/22 documented as of this encounter
--- OUTSIDE RECORDS SUMMARY | 2025-02-24 16:39 | XMS_ITS | Encounter Summary ---
Author Organization [facility] Address [address] [place] [address] Care Team Providers Care Seed Corn Manager Production Name Role Phone Afsaneh Valdez DO Primary Care Pro vider Unavailable Toya Samuels MD Primary Care Provider Unavaila Olivier Carrion MD Primary Care Provider Nati Sanders MD Primary Care Provider [phone] Reason for Referral * Non BRIDGET (Routine) - Authorized/Booked Specialty Diagnoses / Procedures Referred By Contac t Referred To Contact Pulmonology Diagnoses Obstructive sleep apnea Procedures REFERRAL TO PULMONOLOGY Afsaneh Valdez DO [address] [place] [address] Livan Andrea MD [address] [place] [address] Referral ID Status Reason Start Date Expiration Date V isits Requested Visits Authorized [id number] Authorized/B ooked 10/06/2017 10/06/2018 12 12 Encounter Details Date Type Department Care Team Description 10/06/2017 Orders Only Adult Medicine [address] [place] [address] [address] Afsaneh Valdez DO Obstructive sleep apnea moderate AHI 18 (Primary Dx) Social History Tobacco Use Types Packs/Day Years [...] as of this encounter Plan of Treatment Scheduled Orders Name Type Priority Associated Diagnoses Orde r Schedule SLEEP STUDY-FULL NEURO 16 CHANNEL SLEEP STUDY Routine Obstructive sleep apnea moderate AHI 18 Expected: 10/06/2017, Expires: 10/06/2018 documented as of this encounter Visit Diagnoses Diagnosis Obstructive sleep apnea moderate AHI 18- Primary Obstructive sleep apnea (adult) (pediatric) documented in this encounter Care Teams Seed Corn Manager Production Relationship Specialty Start Date End Date Afsaneh Valdez DO PCP - General Internal Medicine 04/24/15 02/01/19 Toya Samuels MD PCP - General Internal Medicine 02/02/19 02/20/21 Olivier Isaac MD [address] [place] [address] [phone] PCP - General Internal Medicine 02/21/21 08/06/22 Nati Sanders MD [address] [place] [address] PCP - General Internal Medicine 08/07/22 documented as of this encounter
--- OUTSIDE RECORDS SUMMARY | 2025-02-24 16:39 | XMS_ITS | Encounter Summary ---
Author Organization [facility] Address [address] [place] [address] Care Team Providers Care Fan Blade Aligner Name Role Phone Afsaneh Valdez DO Primary Care Pro vider Unavailable Toya Samuels MD Primary Care Provider Unavaila Olivier Carrion MD Primary Care Provider [phone] Nati Sanders MD Primary Care Provider [phone] Encounter Details Date Type Department Care Team Description 05/26/2017 Orders Only Adult Medicine [address] [address] Afsaneh Valdez DO History of gout (Primary Dx); Abnormal EKG; SOB (shortness of breath) on exertion; Elevated glucose; Change in multiple pigmented skin lesions; Lumbar spondylolysis; Morbid obesity, unspecified obesity type (HCC); Essential hypertension; Mixed hyperlipidemia Social History Tobacco Use Types Packs/Day Years [...] on file documented as of this encounter Results * URIC ACID (09/22/2017 5:02 PM EST) Uric Acid 3.8 2.1 - 6.2 mg/dL 09/22/2017 8:33 PM EST [facility] 09/22/2017 5:02 PM EST 09/22/2017 5:02 PM EST Afsaneh Hernandez DO [facility] [address] [facility] documented in this encounter Visit Diagnoses Diagnosis History of gout- Primary Personal history of other endocrine, metabolic, and immunity disorders Abnormal EKG Nonspecific abnormal electrocardiogram (ECG) (EKG) SOB (shortness of breath) on exertion Shortness of breath Elevated glucose Other abnormal glucose Change in multiple pigmented skin lesions Lumbar spondylolysis Acquired spondylolisthesis Morbid obesity, unspecified obesity type (HCC) Essential hypertension Unspecified essential hypertension Mixed hyperlipidemia documented in this encounter Care Teams Fan Blade Aligner Relationship Specialty Start Date End Date Afsaneh Valdez DO PCP - General Internal Medicine 04/24/15 02/01/19 Toya Samuels MD PCP - General Internal Medicine 02/02/19 02/20/21 Olivier Isaac MD [address] [place] [address] PCP - General Internal Medicine 02/21/21 08/06/22 Nati Sanders MD [address] [place] [address] PCP - General Internal Medicine 08/07/22 documented as of this encounter
--- OUTSIDE RECORDS SUMMARY | 2025-02-24 16:39 | XMS_ITS | Encounter Summary ---
Author Organization [facility] Address [address] [place] [address] Care Team Providers Care Nail Tech Name Role Phone Toya Samuels MD Primary Care Provider Olivier Suresh MD Primary Care Provider [phone] Nati Sanders MD Primary Care Provider [phone] Reason for Visit * Reason Onset Date Comments Call From Pharmacy 11/05/2019 Encounter Details Date Type Department Care Team Description 11/05/2019 Telephone Medicine/Pediatrics - [address] [phone] Toya Samuels MD Call From Pharmacy Social History Tobacco Use Types Packs/Day Years [...] on file documented as of this encounter Miscellaneous Notes * Telephone Encounter - Helen Almeida PA-C - 11/05/2019 7:23 PM EST Diclofenac * Telephone Encounter - Emma Escobar L.P.N. - 11/05/2019 4:51 PM EST Pt was seen today * Telephone Encounter - Lucinda Lewis - 11/05/2019 4:48 PM EST Pharm needs clarification ibuprophen and diclofenac were both sent and pharm wants to know which meds s/b dispensed documented in this encounter Plan of Treatment Not on file documented as of this encounter Visit Diagnoses Not on filedocumented in this encounter Care Teams Nail Tech Relationship Specialty Start Date End Date Toya Samuels MD PCP - General Internal Medicine 02/02/19 02/20/21 Olivier Isaac MD [address] [place] [address] PCP - General Internal Medicine 02/21/21 08/06/22 Nati Sanders MD [address] [place] [address] PCP - General Internal Medicine 08/07/22 documented as of this encounter
--- OUTSIDE RECORDS SUMMARY | 2025-02-24 16:39 | XMS_ITS | Encounter Summary ---
Author Organization [facility] Address [address] [place] [address] Care Team Providers Care Mobile Sales Consultant Name Role Phone Nati Sanders MD Primary Care Provider [phone] Reason for Visit * Reason Comments E-prescribe Rx Request Encounter Details Date Type Department Care Team Description 07/16/2023 Refill Adult Medicine [address] [address] Kalen Avila, PAAngelikaC [address] [place] [address] E-prescribe Rx Request Social History Tobacco Use Types Packs/Day Years [...] PM EDT documented as of this encounter Miscellaneous Notes * Telephone Encounter - Altagracia Phelps M.A. - 07/17/2023 7:58 AM EDT Last office visit 07/04/23 Next office visit 09/12/23 both with Kalen Avila Lab Results Component Value Date NA 140 05/16/2023 K 3.8 05/16/2023 CO2 25 05/16/2023 CL 107 05/16/2023 BUN 22 05/16/2023 CREAT 1.35 05/16/2023 GLU 154 05/16/2023 CA 9.9 05/16/2023 GFR 60 05/16/2023 documented in this encounter Plan of Treatment Not on file documented as of this encounter Visit Diagnoses Not on filedocumented in this encounter Care Teams Mobile Sales Consultant Relationship Specialty Start Date End Date Nati Sanders MD [address] [place] [address] PCP - General Internal Medicine 08/07/22 documented as of this encounter
--- OUTSIDE RECORDS SUMMARY | 2025-02-24 16:39 | XMS_ITS | Encounter Summary ---
Author Organization [facility] Address [address] [place] [address] Care Team Providers Care Dolphin Researcher Name Role Phone Nati Sanders MD Primary Care Provider [phone] Reason for Visit * Reason Onset Date Comments Sinus Problem 03/11/2024 ear problems 03/11/2024 Encounter Details Date Type Department Care Team Description 03/11/2024 Pt. Non Urgent Medical Question Adult Medicine [address] [address] Nati Sanders MD [address] [place] [address] Social History Tobacco Use Types Packs/Day Years [...] encounter Miscellaneous Notes * Telephone Encounter - Sravani Rahman - 03/11/2024 2:24 PM EDTFrom: Luis Miguel Rowe To: Yousif Sanders Sent: 03/11/2024 2:20 PM EDT Subject: Sinus I have what I believe to be a sinus infection. I have pain along my teeth, but it is in no set spot, and I also have intermittent pain under my left cheekbone and in my left ear. All of which usuallyhappens when I have an sinus infection. Can we discuss this? Thanks. documented in this encounter Plan of Treatment Not on file documented as of this encounter Visit Diagnoses Not on filedocumented in this encounter Care Teams Dolphin Researcher Relationship Specialty Start Date End Date Nati Sanders MD [address] [place] [address] PCP - General Internal Medicine 08/07/22 documented as of this encounter
--- OUTSIDE RECORDS SUMMARY | 2025-02-24 16:39 | XMS_ITS | Encounter Summary ---
Author Organization [facility] Address [address] [place] [address] Care Team Providers Care Otter Trawler Boatswain Name Role Phone Toya Samuels MD Primary Care Provider Olivier Suresh MD Primary Care Provider [phone] Nati Sanders MD Primary Care Provider [phone] Reason for Visit * Reason Onset Date Comments Faxed Refill 08/20/2019 Encounter Details Date Type Department Care Team Description 08/20/2019 Refill Medicine/Pediatrics - [address] [phone] Toya Samuels MD Faxed Refill Social History Tobacco Use Types Packs/Day Years [...] encounter Miscellaneous Notes * Telephone Encounter - Lien Victoria M.A. - 08/24/2019 9:39 AM EDT Rx sent * Telephone Encounter - Inderjit Gleason M.A. - 08/20/2019 4:08 PM EDT Last ov 06/09/19 * Telephone Encounter - Windy Haywardparminder - 08/20/2019 3:52 PM EDT Patient would like script to be: E-PRESCRIBED/FAXED TO PHARMACY WHEN WAS THE PATIENT'S LAST APPOINTMENT IN ADULT MEDICINE? 06/09/19 WHEN WAS THE LAST TIME THE PATIENT SAW THEIR PCP? Same as above Does patient have an upcoming appointment? NO (THE MEDICATION REQUESTED IS ON THE MED LIST ABOVE) All of the medications requested were on the CURRENT MEDS list Did you check the Pharmacy information above?: YES Patient wants: 30 -day supply Is this a mail order prescription request ? NO If the refill is from a FAXED refill request what is the RX # listed on the fax? N/A Patients current insurance carrier is: Payor: [place] [email or web address] / Plan: PPO $0 [id number] / Product Type: PPO [id number] documented in this encounter Plan of Treatment Not on file documented as of this encounter Visit Diagnoses Not on filedocumented in this encounter Care Teams Otter Trawler Boatswain Relationship Specialty Start Date End Date Toya Samuels MD PCP - General Internal Medicine 02/02/19 02/20/21 Olivier Isaac MD [address] [place] [address] [phone] PCP - General Internal Medicine 02/21/21 08/06/22 Nati Sanders MD [address] [place] [phone] PCP - General Internal Medicine 08/07/22 documented as of this encounter
--- OUTSIDE RECORDS SUMMARY | 2025-02-24 16:39 | XMS_ITS | Encounter Summary ---
Author Organization [facility] Address [address] [place] [address] Care Team Providers Care Jowl Trimmer Name Role Phone Nati Sanders MD Primary Care Provider [phone] Encounter Details Date Type Department Care Team Description 02/20/2023 Benzene Still Utility Operator Report Medical Records [address] [place] [address] Bryan Gonsales Social History Tobacco Use Types Packs/Day Years [...] was confirmed or suspected to have Coronavirus/COVID-19? Unable to assess 02/11/2023 8:10 AM EDT documented as of this encounter Plan of Treatment Not on file documented as of this encounter Visit Diagnoses Not on filedocumented in this encounter Care Teams Jowl Trimmer Relationship Specialty Start Date End Date Nati Sanders MD [address] [place] [address] PCP - General Internal Medicine 08/07/22 documented as of this encounter
--- OUTSIDE RECORDS SUMMARY | 2025-02-24 16:39 | XMS_ITS | Encounter Summary ---
Author Organization [facility] Address [address] [place] [address] Care Team Providers Care Ekg Tech Name Role Phone Nati Sanders MD Primary Care Provider [phone] Reason for Visit * Reason Comments E-prescribe Rx Request Encounter Details Date Type Department Care Team Description 08/28/2022 Refill Adult Medicine [facility] [address] [place] [address] [facility] [address] [place] [address] E-prescribe Rx Request Social History Tobacco Use [...] suspected to have Coronavirus/COVID-19? No / Unsure 08/07/2022 8:33 AM EDT documented as of this encounter Miscellaneous Notes * Telephone Encounter - Esmer Alvarado M.A. - 08/28/2022 1:36 PM EDT Lab Results Component Value Date NA 136 12/12/2021 K 3.7 12/12/2021 CO2 27 12/12/2021 CL 102 12/12/2021 BUN 17 12/12/2021 CREAT 1.38 12/12/2021 GLU 237 12/12/2021 CA 9.3 12/12/2021 GFR 53 12/12/2021 Last appt with pcp 08/07/22 * Telephone Encounter - Jesusita Norton - 08/28/2022 1:22 PM EDT Patient would like script to be: E-PRESCRIBED/FAXED TO PHARMACY WHEN WAS THE PATIENT'S LAST APPOINTMENT IN ADULT MEDICINE? 08/07/22 WHEN WAS THE LAST TIME THE PATIENT SAW THEIR PCP? Same as above Does patient have an upcoming appointment? Yes 11/13/22 (THE MEDICATION REQUESTED IS ON THE MED LIST ABOVE) All of the medications requested were on the CURRENT MEDS list Did you check the Pharmacy information above?: YES Patient wants: 90 -day supply Is this a mail order prescription request ? NO If the refill is from a FAXED refill request what is the RX # listed on the fax? N/A Patients current insurance carrier is: Payor: [facility] [employer] / Plan: [facility] $15/$22 / Product Type: HMO [id number] documented in this encounter Plan of Treatment Not on file documented as of this encounter Visit Diagnoses Not on filedocumented in this encounter Care Teams Ekg Tech Relationship Specialty Start Date End Date Nati Sanders MD [address] [place] [address] PCP - General Internal Medicine 08/07/22 documented as of this encounter
--- OUTSIDE RECORDS SUMMARY | 2025-02-24 16:39 | XMS_ITS | Encounter Summary ---
Author Organization [facility] Address [address] [place] [address] Care Team Providers Care Trolley Cleaner Name Role Phone Afsaneh Valdez DO Primary Care Pro vider Unavailable Toya Samuels MD Primary Care Provider Unavaila Olivier Carrion MD Primary Care Provider [phone] Nati Sanders MD Primary Care Provider [phone] Encounter Details Date Type Department Care Team Description 05/28/2018 Orders Only Adult Medicine [address] [address] Afsaneh Valedz DO Thrombocytopenia (HCC) (Primary Dx); Normocytic anemia; Proteinuria, unspecified type; Elevated fasting glucose Social History Tobacco Use Types Packs/Day Years [...] Type Priority Associated Diagnoses Orde r Schedule IRON/TIBC Lab Routine Thrombocytopenia (HCC) Normocytic anemia Expected: 05/28/2018, Expires: 05/28/2019 FERRITIN ASSAY Lab Routine Thrombocytopenia (HCC) Normocytic anemia Expected: 05/28/2018, Expires: 05/28/2019 VITAMIN B-12, ASSAY Lab Routine Thrombocytopenia (HCC) Normocytic anemia Expected: 05/28/2018, Expires: 05/28/2019 BASIC METABOLIC PANEL Lab Routine Proteinuria, unspecified type Expected: 05/28/2018, Expires: 05/28/2019 URINALYSIS, ROUTINE Lab Routine Proteinuria, unspecified type Expected: 05/28/2018, Expires: 05/28/2019 MICROALBUMIN/CREATININE, URINE Lab Routine Proteinuria, unspecified type Expected: 05/28/2018, Expires: 05/28/2019 HEMOGLOBIN A1C Lab Routine Elevated fasting glucose Expected: 05/28/2018, Expires: 05/28/2019 documented as of this encounter Visit Diagnoses Diagnosis Thrombocytopenia (HCC)- Primary Thrombocytopenia, unspecified Normocytic anemia Anemia, unspecified Proteinuria, unspecified type Elevated fasting glucose Impaired fasting glucose documented in this encounter Care Teams Trolley Cleaner Relationship Specialty Start Date End Date Afsaneh Valdez DO PCP - General Internal Medicine 04/24/15 02/01/19 Toya Samuels MD PCP - General Internal Medicine 02/02/19 02/20/21 Olivier Isaac MD [address] [place] [id number] PCP - General Internal Medicine 02/21/21 08/06/22 Nati Sanders MD [address] [place] [id number] PCP - General Internal Medicine 08/07/22 documented as of this encounter
--- OUTSIDE RECORDS SUMMARY | 2025-02-24 16:39 | XMS_ITS | Encounter Summary ---
Author Organization [facility] Address [address] [place] [address] Care Team Providers Care Dyed Raw Stock Blower Feeder Name Role Phone Afsaneh Valdez DO Primary Care Pro vider Unavailable Toya Samuels MD Primary Care Provider Unavaila [facility] Olivier Isaac MD Primary Care Provider [phone] Nati Sanders MD Primary Care Provider [phone] Encounter Details Date Type Department Care Team Description 07/17/2015 Preparation Plant Supervisor Report Medical Records [address] [place] [address] Social History Tobacco Use Types Packs/Day Years [...] on filedocumented in this encounter Care Teams Dyed Raw Stock Blower Feeder Relationship Specialty Start Date End Date Afsaneh Valdez DO PCP - General Internal Medicine 04/24/15 02/01/19 Toya Samuels MD PCP - General Internal Medicine 02/02/19 02/20/21 Olivier Isaac MD [address] [place] [id number] PCP - General Internal Medicine 02/21/21 08/06/22 Nati Sanders MD [address] [place] [address] PCP - General Internal Medicine 08/07/22 documented as of this encounter
--- OUTSIDE RECORDS SUMMARY | 2025-02-24 16:39 | XMS_ITS | Encounter Summary ---
Author Organization [facility] [employer] [facility] Address [address] [place] [address] Care Team Providers Care Kettle Fry Cook Operator Name Role Phone Nati Sanders MD Primary Care Provider [phone] Encounter Details Date Type Department Care Team Description 05/20/2023 Orders Only Adult Medicine [address] [address] Nati Sanders MD [address] [place] [address] [id number] Social History Tobacco Use Types Packs/Day Years [...] suspected to have Coronavirus/COVID-19? No / Unsure 05/16/2023 3:12 PM EDT documented as of this encounter Plan of Treatment Not on file documented as of this encounter Visit Diagnoses Not on filedocumented in this encounter Care Teams Kettle Fry Cook Operator Relationship Specialty Start Date End Date Nati Sanders MD [address] [place] [address] [id number] PCP - General Internal Medicine 08/07/22 documented as of this encounter
--- OUTSIDE RECORDS SUMMARY | 2025-02-24 16:39 | XMS_ITS | Encounter Summary ---
Author Organization [facility] Address [address] [place] [address] Care Team Providers Care Crate Liner Name Role Phone Afsaneh Valdez DO Primary Care Pro vider Unavailable Toya Samuels MD Primary Care Provider Unavaila Olivier Carrion MD Primary Care Provider [phone] Nati Sanders MD Primary Care Provider [phone] Reason for Visit * Reason Onset Date Comments REFERRAL 03/02/2018 Encounter Details Date Type Department Care Team Description 03/02/2018 Telephone [facility] [address] [place] [address] Gayla Lainez [facility] [address] [place] [address] REFERRAL Social History Tobacco Use Types Packs/Day Years [...] Miscellaneous Notes * Telephone Encounter - Esmer Andrade - 03/02/2018 11:15 AM EDT FYI ONLY. Pt canx 01/01/18 and 02/21/18 sleep studies. Called pt 02/19/18 and sent letter 4/30/18 with no response. I am removing this pt's order from the sleep study schedule. Order expires 10/06/18,[facility] # [id number] 12/19/17 - 03/18/18 for CPT 41140 AQ. documented in this encounter Plan of Treatment Not on file documented as of this encounter Visit Diagnoses Not on filedocumented in this encounter Care Teams Crate Liner Relationship Specialty Start Date End Date Afsaneh Valdez DO PCP - General Internal Medicine 04/24/15 02/01/19 Toya Samuels MD PCP - General Internal Medicine 02/02/19 02/20/21 Olivier Isaac MD [address] [place] [id number] PCP - General Internal Medicine 02/21/21 08/06/22 Nati Sanders MD [address] [place] [id number] PCP - General Internal Medicine 08/07/22 documented as of this encounter
--- OUTSIDE RECORDS SUMMARY | 2025-02-24 16:39 | XMS_ITS | Clinical Summary ---
Author Organization [facility] Address [address] [place] [address] Care Team Providers Care Booking Supervisor Name Role Phone Nati Sanders MD Primary Care Provider [phone] Allergies Active Allergy Reactions Severity Noted Date Comments Oxycodone SOB, Wheezing 10/23/2020 Penicillins Anaphylaxis,Rash/Dermatitis 015 Skin Adhesives 01/21/2024 Medications Medication Sig Dispensed Refills Start Date End Date Status Multiple Vitamins-Minerals (OCUVITE ADULT 50+ OR) Take 1 Tab by mouth daily. 0 Active ALBUTEROL SULFATE 108 (90 Base) MCG/ACT Aero SolnIndications:Mild intermittent asthma without complication Inhale 2 Puffs into the lungs every 4 hours. 8.5 g 5 03/28/2022 Active FreeStyle Lancets MiscIndications:Uncont rolled type 2 diabetes mellitus with hyperglycemia (HCC) Use to test blood sugar two times daily 200 Each 1 12/30/2022 Active OneTouch Ultra strip Use to check blood sugar 2 times daily 200 Each 0 01/02/2023 Active Blood Glucose Monitoring Suppl (ONE TOUCH ULTRA 2) w/Device Kit Use to check blood sugar 2 times daily 1 Kit 0 01/02/2023 Active ONE TOUCH ULTRASOFT LANCETS Misc Use to check blood sugar 2 times daily 200 Each 0 01/02/2023 Active aspirin (Aspirin Low Dose) 81 MG EC tablet Take 1 Tablet by mouth daily. 90 Tablet 2 10/16/2023 Active simvastatin (ZOCOR) 20 MG tablet Take 1 Tablet by mouth at bedtime. 90 Tablet 1 10/16/2023 Active allopurinol (ZYLOPRIM) 300 MG tablet Take 1 Tablet by mouth 2 times daily. 60 Tablet 5 10/16/2023 Active atenolol (TENORMIN) 25 MG tablet Take 1 Tablet by mouth daily. 90 Tablet 1 12/12/2023 Active Vitamin D, Cholecalciferol, 25 MCG (1000 UT) Cap Take 1 Capsule by mouth daily. 90 Capsule 1 12/12/2023 Active acetaminophen (Tylenol 8 Hour) 650 MG CR tablet Take 1 Tablet by mouth 3 times daily as needed for Pain. 120 Tablet 3 12/12/2023 Active sertraline (ZOLOFT) 50 MG tablet Take one tablet daily 90 Tablet 0 12/24/2023 Active doxycycline (VIBRA-TABS) 100 MG tablet Take 1 Tablet by mouth 2 times daily. 14 Tablet 0 03/12/2024 Active metformin (GLUCOPHAGE) 500 MG tablet TAKE 2 TABLETS BY MOUTH IN THE MORNING AND TAKE 1 TABLET IN THE EVENING 270 Tablet 1 05/05/2024 Active lisinopril-hydrochloro thiazide (PRINZIDE,ZESTORETIC) 20-25 MG per tablet TAKE 1 TABLET BY MOUTH DAILY 90 Tablet 1 05/05/2024 Active Active Problems Problem Noted Date Type 2 diabetes mellitus wit h hyperglycemia, without long-term current use of insulin 08/07/2022 Stage 3 chronic kidney disease 2 Class 3 severe obesity with serious comorbidity and body mass index (BMI) of 40.0 to 44.9 in adult 12/18/2021 Elevated serum creatinine 09/25/2020 DM (diabetes mellitus), type 2, uncontro lled 09/04/2020 Depression 06/09/2019 Gastroesophageal reflux disease with eso phagitis 12/01/2018 Proteinuria 05/28/2018 Normocytic anemia 05/28/2018 Thrombocytopenia 05/28/2018 Obstructive sleep apnea moderate AHI 18 10/03/2017 Overview: [facility] Home Polysomnogram: Date 10/01/2017; AHI 18, Unclassified apneas 0; Obstructive apneas 34; Central apneas 5; Mixed apneas 0; hypopneas 121; average oxygen saturation 93% (lowest 68% with saturations <88% for 5% or more of study) Lumbar spondylolysis 04/02/2017 Anxiety state, unspecified 07/21/2015 SNHL (sensorineural hearing loss) 2014 Asthma 05/17/2015 HTN (hypertension) 05/17/2015 Hyperlipidemia 05/17/2015 Gout 05/17/2015 Microalbuminuria 05/17/2015 LFT elevation 05/17/2015 Cervical spine disease 03/24/2015 Resolved Problems Problem Noted Date Resolved Date Low back pain radiating to both legs 02/08/2015 04/02/2017 Cervicalgia 02/08/2015 04/02/2017 Overview: Numbness in the left thumb. Immunizations Name Administration Dates Next Due COVID-19 (Moderna) 11/02/2021,12/01/2020, 021 Influenza (> 6 Months) 07/28/2015,08/27/2014 Influenza Flu (PT Reported) 07/16/2020 Influenza Vaccine-preservati ve Free-quadrivalent 4 Years 12/12/2023,08/07/2022,11/06/2018 Tdap 05/16/2023 Tdap (Adacel) 07/29/2012 Family History Medical History Relation Name Comments gout Father Cancer of the Colon Mother spinal s tenosis Autoimmune Negative Hx CA Breast Negative Hx CA Colon Negative Hx CA Prostate Negative Hx CAD Negative Hx CHF Negative Hx Cholesterol Level Negative Hx Diabetes Negative Hx Hypertension Negative Hx IN Negative Hx Mental Disorder Negative Hx Sleep Apnea Negative Hx Thyroid Disorder Negative Hx Relation Name Status Comments Father Mother [...] file Not on file Not on file Last Filed Vital Signs Vital Sign Reading Time Taken Comments Blood Pressure 120/68 03/12/2024 9:53 AM EDT Pulse 80 03/12/2024 9:53 AM EDT Temperature 36.4 ??C (97.6 ??F) 03/12/2024 9:53 AM ED T Respiratory Rate 16 03/12/2024 9:53 AM EDT Oxygen Saturation 97% 03/12/2024 9:53 AM EDT Inhaled Oxygen Concentration - - Weight 121.7 kg (268 lb 6.4 oz) 03/12/2024 9:53 AM EDT Height 177.8 cm (5' 10 ) 03/12/2024 9:53 AM EDT Body Mass Index 38.51 03/12/2024 9:53 AM EDT Plan of Treatment Health Maintenance Due Date Last Done Comments PNEUMOCOCCAL VACCINE FOR HIG H RISK PATIENTS (#1) 1983 SHINGLES VACCINE (1 of 2) 2014 DIABETES: ANNUAL EYE EXAM 04/01/20232021 (External Completion of test per patient (Patient reports normal results)) DIABETES: ANNUAL FOOT EXAM 08/07/2023 08/07/2022 (Co mpleted) DIABETES: ANNUAL URINE PROTE IN TEST (MICROALBUMIN) 12/04/2023 12/04/2022, 08/03/2022, 09/25/2020 DIABETES: BLOOD SUGAR CONTRO L TEST (HGBA1C) 01/14/2024 10/15/2023, 05/14/2023, 12/04/2022, Additional history exists DIABETES/HEART DISEASE: MELLO AL CHOLESTEROL (LDL) 05/14/2024 05/14/2023, 12/12/2021, 08/31/2020, Additional history exists Covid-19 Vaccine (2022-11 4 season) 2024 11/02/2021, 12/01/2020, 10/31/2020 BMI CHECK/ADVISE 10/27/2024 03/12/2024, , 10/16/2023, Additional history exists DEPRESSION SCREENING/FOLLOWUP 10/27/2024, 12/12/2023, 12/12/2023, Additional history exists SOCIAL NEEDS SCREENING 10/27/2024 12/12/2023 INFLUENZA (Season Ended) 2025 024, 08/07/2022, 07/16/2020 (External Completion of Vaccination per patient), Additional history exists COLON CANCER SCREENING 10/05/2025 10/05/2020, 2013 BASELINE HEALTH EXAM 40-64 12/12/202512/12, 05/11/2016, 07/28/2015 DTAP/TDAP/TD (3 - Td or Tdap) 05/16/2033 05/16/2023, 07/29/2012 HEPATITIS C SCREENING Completed 05/11/2016 Care Teams Booking Supervisor Relationship Specialty Start Date End Date Nati Sanders MD [address] [place] [id number] PCP - General Internal Medicine 08/07/22
--- OUTSIDE RECORDS SUMMARY | 2025-02-24 16:39 | XMS_ITS | Encounter Summary ---
Author Organization [facility] Address [address] [place] [address] Care Team Providers Care Clinical Psychologist Private Practice Name Role Phone Nati Sanders MD Primary Care Provider [phone] Reason for Visit * Reason Comments E-prescribe Rx Request Encounter Details Date Type Department Care Team Description 06/09/2024 Refill Adult Medicine [facility] [address] [place] [address] Nati Sanders MD [address] [place] [id number] E-prescribe Rx Request Social History Tobacco Use [...] encounter Miscellaneous Notes * Telephone Encounter - Kalen Avila PA-C - 08/26/2024 2:08 PM EDT Can be bought OTC, should book appt with care team * Telephone Encounter - Altagracia Phelps M.A. - 08/26/2024 2:02 PM EDT Last office visit 03/12/24 Pt keeps canceling appts. Lab Results Component Value Date 25OHD 05/05/2018 * Telephone Encounter - Sravani Rahman - 08/25/2024 1:08 PM EDT Numerous message were left for patient to return our call to schedule a follow up appointment with no success Would you consider a short supply until patient calls back and schedules a follow up Last time seen in office 03/12/2024 * Telephone Encounter - Sravani Rahman - 08/24/2024 11:44 AM EDT Called patient and left a voicemail to return our call and schedule an appointment for a med review. documented in this encounter Plan of Treatment Not on file documented as of this encounter Visit Diagnoses Not on filedocumented in this encounter Care Teams Clinical Psychologist Private Practice Relationship Specialty Start Date End Date Nati Sanders MD [address] [place] [id number] PCP - General Internal Medicine 08/07/22 documented as of this encounter
== END 2025-02-24 15:23 | disposition home or self-care (01) ==
LOC: HO.HNS 14:37
PROVIDERS: PCP Internal Medicine; Visit Provider Physician Assistant
DX: M48.062 Spinal stenosis, lumbar region with neurogenic claudication (principal); M47.12 Other spondylosis with myelopathy, cervical region
CPT/HCPCS: 99024

== ENCOUNTER 2025-04-08 15:40 | Outpatient (AMB) | payer OTHER, SELFPAY ==
--- NOTE | 2025-04-08 15:43 | A.SPINEOV_ITS ---
Intake Visit Reasons: low back pain and bilateral leg weakness Intake Note: Mr. Rowe is here today c/o low back pain and bilateral leg weakness. 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 He was having some increased back pain over the last few weeks so came in for an appointment. The back pain seems to be receding a bit with some basic mfbr-ive-arzcdor pain medication and tincture of time. He is still complaining of gait imbalance though. That is been troublesome all along. He feels like it might be getting a little bit worse. He has no recurrence of the leg pain that he had before his anterior cervical fusion. I still do not quite understand how his stenosis claudicating leg pain went away after his anterior cervical fusion, but somehow he has been able to avoid needing decompression so far. I examined him today, he is able to stand up on his own, he does use a cane to walk around, his strength and reflexes are normal in the lower extremities. We talked about the fact that he could have some residual affects of the previous spinal cord compression, and that even with an optimum decompression, sometimes there are residual effects that may never go away. This is also superimposed on the fact that he has diabetes and it could have some degree of peripheral neuropathy. Also, he has stenosis at L2-3 and L4-5 which is moderate to severe. At some point I believe that leg pain will return and he will need decompression. If the balance just continues to get worse over time and we do not have a clear explanation, we could consider an EMG to evaluate for peripheral neuropathy versus stenosis as the cause of the gait imbalance. For now though he would like to try some physical therapy which is certainly reasonable and I will see him back in a few months. 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
--- OUTSIDE RECORDS SUMMARY | 2025-04-08 15:43 | XMS_ITS | Clinical Summary ---
Author Organization [facility] Address [address] [place] [address] Care Team Providers Care Accounts Administrator Name Role Phone Unavailable Primary Care Provider [...] 5 season) 2024 12/01/2020, 10/31/2020 Influenza Vaccine (Season Ended) 2025 11/06/2018, 07/28/2015, 08/27/2014 RSV Adult > 60+ Yrs [...] Rowe Personal/Famil y Self 1965 [address] [place] [address]
== END 2025-04-08 16:05 | disposition home or self-care (01) ==
LOC: HO.HNS 15:40
PROVIDERS: Visit Provider Physician Assistant
DX: M48.062 Spinal stenosis, lumbar region with neurogenic claudication (principal); M47.12 Other spondylosis with myelopathy, cervical region
CPT/HCPCS: 99213

== ENCOUNTER 2025-05-25 15:11 | Outpatient (AMB) | payer OTHER, SELFPAY ==
--- OUTSIDE RECORDS SUMMARY | 2025-05-25 15:54 | XMS_ITS | Clinical Summary ---
Author Organization [facility] Address [address] [place] [address] Care Team Providers Care User Interface Artist Name Role Phone Unavailable Primary Care Provider [...] season) 2024 12/01/2020, 10/31/2020 Influenza Vaccine (#1) 2025 9, 07/28/2015, 08/27/2014 RSV Adult > 60+ [...] y Self 1965 [address] [place] [facility] [place] [address]
--- OUTSIDE RECORDS SUMMARY | 2025-05-25 15:54 | XMS_ITS ---
Author Name [facility] Organization Unknown Care Team Organization Name Specialty Phone Email Start Date End Da te [facility] Termed, PROVIDER Primary Care 09/03/202205/27
--- OUTSIDE RECORDS SUMMARY | 2025-05-25 15:54 | XMS_ITS | Clinical Summary ---
Author Organization [facility] [address] [place] [address] [place] [phone] Phone Care Team Providers Care Flight Coordinator Name Role Phone Nati Sanders MD Primary Care Provider [phone] Allergies Active Allergy Reactions Criticality Noted Date Comments Adhesive 01/21/2024 Oxycodone Wheezing 10/23/2020 Penicillins Anaphylaxis,Rash High 02/02/2015 Medications cholecalciferol (VITAMIN D-3) 25 mcg (1,000 unit) [...] Take 1 Tab by mouth daily. Active blood-glucose meter kitIndications: DM (diabetes mellitus) type 2, uncontrolled, with ketoacidosis (CMS/HCC V24, CMS/HCC V28) Use daily or as directed for monitoring of diabetes. 1 each 11/11/19 25 026 Active glucose blood test stripIndication s:DM (diabetes mellitus) type 2, uncontrolled, with ketoacidosis (CMS/HCC V24, CMS/HCC V28) Use as instructed 100 each 11/11/19 25 026 Active allopurinoL (ZYLOPRIM) 300 mg tablet TAKE ONE TABLET BY MOUTH TWICE A DAY 180 tablet 1 11/22/19 25 Active Additional Information Patient taking differently:300 mg oralDaily, Reported on 04/13/2025 aspirin 81 mg EC tablet TAKE 1 TABLET BY MOUTH DAILY 90 tablet 2 11/21/19 25 Active lancets lancets Use to test blood sugars twice daily 100 each 1 01/14/20 25 Active atenoloL (TENORMIN) 25 mg tablet Take 1 tablet (25 mg total) by mouth 1 (one) time each day. 90 tablet 1 04/13/20 25 Active metFORMIN (GLUCOPHAGE) 500 mg tabletIndicatio ns:DM (diabetes mellitus) type 2, uncontrolled, with ketoacidosis ([facility] V24, [facility] V28) Take 2 tablets (1,000 mg total) by mouth 2 (two) times a day with meals. 360 tablet 1 04/13/20 25 Active simvastatin (ZOCOR) 20 mg tablet Take 1 tablet (20 mg total) by mouth at bedtime. at bedtime 90 tablet 1 04/13/20 25 Active lisinopril-hydr oCHLOROthiazide (PRINZIDE,ZESTO RETIC) 20-25 mg per tablet TAKE ONE TABLET BY MOUTH EVERY DAY 90 tablet 1 05/19/20 25 Active lisinopril-hydr oCHLOROthiazide (PRINZIDE,ZESTO RETIC) 20-25 mg per tablet Take 1 tablet by mouth 1 (one) time each day. 90 tablet 1 04/13/20 25 025 Discontinued Active Problems Problem Noted Date Diagnosed Date Type 2 diabetes mellitus wit h hyperglycemia, without long-term current use of insulin ([facility] V24, [facility] V28) 08/07/2022 Stage 3 chronic kidney disease ([facility] V24, [facility] V28) 03/29/2022 Elevated serum creatinine 09/25/2020 DM (diabetes mellitus) type 2, uncontrolled, with ketoacidosis ([facility] V24, [facility] V28) 09/04/2020 Assessment & Plan (04/13/2025 10:47 AM EDT): Orders: metFORMIN (GLUCOPHAGE) 500 mg tablet; Take 2 tablets (1,000 mg total) by mouth 2 (two) times a day with meals. Comprehensive metabolic panel; Future Hemoglobin A1c; Future Lipid panel with reflex to direct LDL; Future CBC and differential; Future Depression 06/09/2019 Gastroesophageal reflux disease with esophagitis 12/01/2018 Normocytic anemia 05/28/2018 Proteinuria 05/28/2018 Thrombocytopenia ([facility] V24) 05/28/2018 Obstructive sleep apnea 10/03/2017 Overview (10/15/2024): [facility] Home Polysomnogram: Date 10/01/2017; AHI 18, Unclassified apneas 0; Obstructive apneas 34; Central apneas 5; Mixed apneas 0; hypopneas 121; average oxygen saturation 93% (lowest 68% with saturations <88% for 5% or more of study) Lumbar spondylolysis 04/02/2017 Anxiety state 07/21/2015 SNHL (sensorineural hearing loss) 07/18/2015 HTN (hypertension) 05/17/2015 Hyperlipidemia 05/17/2015 Gout 05/17/2015 Assessment & Plan (04/13/2025 10:47 AM EDT): Patient has history of gout, was not allopurinol 300 mg twice a day was decreased to daily, reports that since being decreased to daily he feels like he is getting a gout flare however has not had any active flares per se but does note that the toe feels more sore, reports that when he was on the higher dose of allopurinol he had not had any symptoms for about 20 years or so. Check uric acid levels Orders: Uric acid; Future Asthma 05/17/2015 LFT elevation 05/17/2015 Microalbuminuria 05/17/2015 Cervical spine disease 03/24/2015 Encounters Date Type Department Care Team Description 04/13/2025 9:30 AM EDT Office Visit Adult Medicine [address] [phone] Nati Sanders MD PE (physical exam), annual (Primary Dx); DM (diabetes mellitus) type 2, uncontrolled, with ketoacidosis ([facility] V24, [facility] V28); Chronic idiopathic gout involving toe without tophus, unspecified laterality; Screening for malignant neoplasm of skin; Need for vaccination against Streptococcus pneumoniae from Last 3 Months Immunizations Name Administration Dates Next Due Influenza Quadravalent, MDCK , 0.5ml, preservative free (Flucelvax) 6mo and older 12/12/2023,08/07/2022,11/06/2018 Influenza trivalent, 0.5mL, preservative free (Fluarix; FluLaval; Fluzone) ages 6mo and older (Afluria) 3 years and older 07/28/2015,08/27/2014 Influenza, Unspecified 07/16/2020 Moderna SARS-CoV-2 COVID-19, mRNA, LNP-S, preservative free 11/02/2021 Pneumococcal conjugate 20 va lent (Prevnar 20, PCV 20) 2mo and older 04/13/2025 Tdap Tetanus diptheria acell ular pertussis (Boostrix; Adacel) 7yo and older 05/16/2023,07/29/2012 Surgical History Surgery Date Site/Laterality Comments OTHER SURGICAL HISTORY 2011 Right PROCEDURE: MS ARTHROTOMY W/MENISCUS REPAIR KNEE HERNIA REPAIR Right PROCEDURE: REPAIR INGUINAL HERNIA SPINE SURGERY 2024 Medical History Medical History Date Comments Gout [...] DX:LFT elevation Renal insufficiency DX:Renal ins ufficiency ADHD (attention deficit hype ractivity disorder) ? Arthritis 1987 Diabetes mellitus ([facility] V 24, [facility] V28) 2019 GERD (gastroesophageal reflux disease) 2020 Family History Medical History Relation Name Comments [...] Years Used Date Smoking Tobacco: Former Cigarettes 0.4 7 0 10/27/1981 - 10/27/1986 Pipe Smokeless Tobacco: Former Snuff, Chew Quit: 10/27/1985 Alcohol Use Standard Drinks/Week Comments Yes 0 (1 standard drink = 0.6 oz pur e alcohol) Housing Instability Answer Date Recorde d Are you worried that in the next 2 months you may not have stable housing? No 04/12/2025 Food Access & Nutrition Answer Date Rec orded Do you have access to a vari ety of food including fruits and vegetables? Yes 04/12/2025 Access to Healthcare Answer Date Record ed Within the last 3 months, ho w many times did you visit the emergency department for your medical care? 0 04/12/2025 Health Literacy Answer Date Recorded How often do you need to hav e someone help you when you read instructions, pamphlets, or other written material from your doctor or pharmacy? Never 04/12/2025 Caregiver: How often do you need to have someone help you when you read instructions, pamphlets, or other written material from your doctor or pharmacy? Not on file 04/12/2025 Financial Risk Answer Date Recorded How hard is it for you to pa y for the very basics like food, housing, medical care, and air conditioning / heating? Somewhat hard 04/12/2025 Transportation Answer Date Recorded Has the lack of transportati on kept you from meetings, work, or from getting things needed for daily living? No Has the lack of transportati on kept you from medical appointments or from getting medications? No 04/12/2025 Social Isolation Answer Date Recorded How often do you feel lonely or isolated from those around you? Sometimes 04/12/2025 Food Risk Answer Date Recorded Within the past 12 months we worried whether our food would run out before we got money to buy more. Sometimes true 025 Within the past 12 months th e food we bought just didn't last and we didn't have money to get more. Never true 04/12/2025 Dependent Care Answer Date Recorded Do you need help finding or paying for care for your loved ones. For example, residential child care counselor or elderly care for an older adult? No 04/12/2025 Education Answer Date Recorded Do you think completing more education or training, like finishing a GED, going to college, or learning a trade, would be helpful for you? Yes 04/12/2025 Employment and Income Answer Date Recor ded During the last four weeks, have you been actively looking for work? Yes 04/12/2025 Living Situation Answer Date Recorded What is your living situation? 0 04/12/2025 Sex and Gender Information Value Date Recorded Sex Assigned at Not on file Legal Sex Male 5:03 PM EST Gender Identity Not on file Sexual Orientation Not on file Obstetrics History Last Filed Vital Signs Vital Sign Reading Time Taken Comments Blood Pressure 108/68 04/13/2025 8:59 AM EDT Pulse 70 04/13/2025 8:59 AM EDT Temperature 36.4 C (97.5 F) 04/13/2025 8:59 AM EDT Respiratory Rate 14 04/13/2025 8:59 AM EDT Oxygen Saturation 98% 04/13/2025 8:59 AM EDT Inhaled Oxygen Concentration - - Weight 120 kg (264 lb) 04/13/2025 8:59 AM EDT Height 177.8 cm (5' 10 ) 04/13/2025 8:59 AM EDT Body Mass Index 37.88 04/13/2025 8:59 AM EDT Plan of Treatment Upcoming Encounters Date Type Department Care Team (Late st Contact Info) Description 07/21/2025 2:30 PM EDT Office Visit Adult Medicine [address] [phone] Nati Sanders MD [address] [place] [address] 04/18/2026 9:30 AM EDT Office Visit Adult [address] [phone] Nati Sanders MD [address] [place] [address] Health Maintenance Due Date Last Done Comments Zoster Vaccines (1 of 2) 1983 HIV Screening 10/05/2022 RSV Immunization Adult Patients (1 - Risk 60-74 years 1-dose series) 2024 COVID-19 Vaccine ( season) 2024 11/02/2021, 12/01/2020, 10/31/2020 Influenza Vaccine (#1) 2025 , 08/07/2022, 07/16/2020, Additional history exists Diabetes: Blood Sugar Control Test (HGBA1C) 10/13/2025 04/13/2025, 10/25/2024, 10/15/2023 Diabetes: Annual Urine Albumin-Creatinine Ratio (uACR) 10/25/2025 10/25/2024, 12/04/2022 Diabetes: Annual Retina Eye Exam 02/19/2026 02/19/2025 Social Influencers of Health Screening 04/12/2026 04/12/2025 Diabetes: Annual Foot Exam 04/13/2026 04/13/2025 Diabetes: Annual GFR (Glomerular Filtration Rate) 04/13/2026 04/13/2025, 10/25/2024, 10/15/2023 Hypertension/CHF/CAD Annual BMP Blood Test 04/13/2026 04/13/2025, 10/25/2024, 10/15/2023 Cholesterol Screening (Lipid Panel) 04/13/2030 04/13/2025, 10/25/2024, 05/14/2023 Colorectal Cancer Screening: Colonoscopy 10/05/2030 10/05/2020 DTaP,Tdap,and Td Vaccines (3 - Td or Tdap) 05/16/2033 05/16/2023, 07/29/2012 Hepatitis C Screening Completed 05/11/2016 Depression Screening Completed 04/12/2025, 12/13/19 24 Pneumococcal Vaccine: 50+ Years Completed 04/13/2025 HIB Vaccines Aged Out No longer eligi [...] Procedure Name Priority Date/Time Associated Diagnosis Comments CBC WITH AUTO DIFFERENTIAL Routine 04/13/2025 10:21 AM EDT DM (diabetes mellitus) type 2, uncontrolled, with ketoacidosis (CMS/HCC V24, CMS/HCC V28) CBC AND DIFFERENTIAL Routine 04/13/2025 10:21 AM EDT DM (diabetes mellitus) type 2, uncontrolled, with ketoacidosis (CMS/HCC V24, CMS/HCC V28) LIPID PANEL WITH REFLEX TO DIRECT LDL Routine 04/13/2025 10:21 AM EDT DM (diabetes mellitus) type 2, uncontrolled, with ketoacidosis (CMS/HCC V24, CMS/HCC V28) HEMOGLOBIN A1C Routine 04/13/2025 10:21 AM EDT DM (diabetes mellitus) type 2, uncontrolled, with ketoacidosis (CMS/HCC V24, CMS/HCC V28) COMPREHENSIVE METABOLIC PANEL Routine 04/13/2025 10:21 AM EDT DM (diabetes mellitus) type 2, uncontrolled, with ketoacidosis (CMS/HCC V24, CMS/HCC V28) URIC ACID Routine 04/13/2025 10:21 AM EDT Chronic idiopathic gout involving toe without tophus, unspecified laterality EXTERNAL DIABETIC RETINA EYE EXAM Routine 02/19/2025 4:37 PM EDT MICROALBUMIN CREATININE URINE RATIO Routine 10/25/2024 10:15 AM EST SNHL (sensorineural hearing loss) Asthma Obstructive sleep apnea Gastroesophageal reflux disease with esophagitis HTN (hypertension) Stage 3 chronic kidney disease (CMS/HCC V24, CMS/HCC V28) Lumbar spondylolysis Hyperlipidemia Gout DM (diabetes mellitus) type 2, uncontrolled, with ketoacidosis ([facility] V24, [facility] V28) Type 2 diabetes mellitus with hyperglycemia, without long-term current use of insulin ([facility] V24, [facility] V28) Thrombocytopenia ([facility] [place]) Normocytic anemia Microalbuminuria Elevated serum creatinine Cervical spine disease Anxiety state Depression LFT elevation Proteinuria DEPRESSION SCREENING Routine 12/13/2023 COLONOSCOPY Routine 10/05/2020 HEPATITIS C SCREENING Routine 05/11/2016 from Last 3 Months or Most Recently Relevant to Health Maintenance Results * (ABNORMAL) Lipid panel with reflex to direct LDL (04/13/2025 10:21 AM EDT) Cholesterol 124 0 - 200 mg/dL LAB CHEMISTRY METHOD 04/13/2025 1:21 PM [facility] Triglycerides 271(H) 0 - 150 mg/dL LAB CHEMISTRY METHOD 04/13/2025 1:21 PM [facility] HDL 36(L) >=40 mg/dL LAB CHEMISTRY METHOD 04/13/2025 1:21 PM [facility] LDL Calculated 34 0 - 100 mg/dL LAB CHEMISTRY METHOD 04/13/2025 1:21 PM [facility] VLDL Cholesterol Albino 54.2 mg/dL LAB CHEMISTRY METHOD 04/13/2025 1:21 PM [facility] Non HDL Chol. (LDL+VLDL) 88 <145 mg/dL LAB CHEMISTRY METHOD 04/13/2025 1:21 PM [facility] Chol/HDL Ratio 3.4 0.0 - 4.4 LAB CHEMISTRY METHOD 04/13/2025 1:21 PM [facility] Blood Venous blood specimen / Unknown Venipuncture / Unknown 04/13/2025 10:21 AM EDT 04/13/2025 10:21 AM EDT us Nati Sanders MD LAB BLOOD ORDERABLES Final Resul t [facility] [address] [place] [address], [place] [phone] * (ABNORMAL) CBC auto differential (04/13/2025 10:21 AM EDT) WBC 11.3(H) 4.8 - 10.8 K/mcL LAB HEMETOLOGY METHOD 04/13/2025 12:23 PM EDT [facility] RBC 4.50 4.50 - 5.50 M/mcL LAB HEMETOLOGY METHOD 04/13/2025 12:23 PM EDT [facility] Hemoglobin 14.5 13.5 - 17.5 g/dL LAB HEMETOLOGY METHOD 04/13/2025 12:23 PM EDT [facility] Hematocrit 40.2(L) 42.0 - 54.0 % LAB HEMETOLOGY METHOD 04/13/2025 12:23 PM EDT [facility] MCV 88.5 79.0 - 98.0 FL LAB HEMETOLOGY METHOD 04/13/2025 12:23 PM EDT [facility] MCH 31.9 27.0 - 32.0 pcg LAB HEMETOLOGY METHOD 04/13/2025 12:23 PM EDT [facility] MCHC 36.1 32.0 - 37.0 g/dL LAB HEMETOLOGY METHOD 04/13/2025 12:23 PM EDT [facility] RDW 13.0 11.0 - 15.0 % LAB HEMETOLOGY METHOD 04/13/2025 12:23 PM EDT [facility] Platelets 141 130 - 400 K/mcL LAB HEMETOLOGY METHOD 04/13/2025 12:23 PM EDT [facility] MPV 10.0 7.0 - 11.0 FL LAB HEMETOLOGY METHOD 04/13/2025 12:23 PM [facility] NRBC 0.0 <1.0 % LAB HEMETOLOGY METHOD 04/13/2025 12:23 PM [facility] NRBC Absolute 0.00 <0.10 K/mcL LAB HEMETOLOGY METHOD 04/13/2025 12:23 PM [facility] Neutrophils Relative 70.5 % LAB HEMETOLOGY METHOD 04/13/2025 12:23 PM [facility] Lymphocytes Relative 20.6 % LAB HEMETOLOGY METHOD 04/13/2025 12:23 PM [facility] Monocytes Relative 6.7 % LAB HEMETOLOGY METHOD 04/13/2025 12:23 PM [facility] Eosinophils Relative 1.3 % LAB HEMETOLOGY METHOD 04/13/2025 12:23 PM [facility] Basophils Relative 0.5 % LAB HEMETOLOGY METHOD 04/13/2025 12:23 PM [facility] Immature Granulocytes Relative 0.4 % LAB HEMETOLOGY METHOD 04/13/2025 12:23 PM [facility] Neutrophils Absolute 7.95(H) 1.50 - 7.00 K/mcL LAB HEMETOLOGY METHOD 04/13/2025 12:23 PM [facility] Lymphocytes Absolute 2.32 1.00 - 5.00 K/mcL LAB HEMETOLOGY METHOD 04/13/2025 12:23 PM [facility] Monocytes Absolute 0.76 0.20 - 1.00 K/mcL LAB HEMETOLOGY METHOD 04/13/2025 12:23 PM [facility] Eosinophils Absolute 0.15 0.00 - 0.50 K/mcL LAB HEMETOLOGY METHOD 04/13/2025 12:23 PM [facility] Basophils Absolute 0.06 0.00 - 0.20 K/mcL LAB HEMETOLOGY METHOD 04/13/2025 12:23 PM EDT [facility] Immature Granulocytes Absolute 0.04(H) 0.00 - 0.03 K/mcL LAB HEMETOLOGY METHOD 04/13/2025 12:23 PM EDT [facility] Blood Venous blood specimen / Unknown Venipuncture / Unknown 04/13/2025 10:21 AM EDT 04/13/2025 10:21 AM EDT Nati Sanders MD LAB BLOOD ORDERABLES Final Resul t Performing Organization Address [facility]/ZIP Co de Phone Number [facility] [address] [place] [address], [place] [phone] * Uric acid (04/13/2025 10:21 AM EDT) Uric Acid 4.8 3.7 - 9.2 mg/dL LAB CHEMISTRY METHOD 04/13/2025 1:21 PM EDT [facility] Blood Venous blood specimen / Unknown Venipuncture / Unknown 04/13/2025 10:21 AM EDT 04/13/2025 10:21 AM EDT Nati Sanders MD LAB BLOOD ORDERABLES Final Resul t Performing Organization Address [facility]/ZIP Co de Phone Number [facility] [address] [place] [address], [place] [phone] * (ABNORMAL) Hemoglobin A1c (04/13/2025 10:21 AM EDT) Hemoglobin A1C 8.8(H) <6.5 % LAB CHEMISTRY METHOD 04/13/2025 2:30 PM EDT [facility] Mean Bld Glu Estim. 206 mg/dL LAB CHEMISTRY METHOD 04/13/2025 2:30 PM EDT [facility] Blood Venous blood specimen / Unknown Venipuncture / Unknown 04/13/2025 10:21 AM EDT 04/13/2025 10:21 AM EDT us Nati Sanders MD LAB BLOOD ORDERABLES Final Resul t [facility] [address] [place] [address], * (ABNORMAL) Comprehensive metabolic panel (04/13/2025 10:21 AM EDT) Sodium 136 133 - 145 mmol/L LAB CHEMISTRY METHOD 04/13/2025 1:21 PM [facility] Potassium 4.1 3.5 - 5.5 mmol/L LAB CHEMISTRY METHOD 04/13/2025 1:21 PM [facility] Chloride 101 96 - 110 mmol/L LAB CHEMISTRY METHOD 04/13/2025 1:21 PM [facility] CO2 23 21 - 32 mmol/L LAB CHEMISTRY METHOD 04/13/2025 1:21 PM [facility] Anion Gap 12(H) 3 - 11 LAB CHEMISTRY METHOD 04/13/2025 1:21 PM [facility] Glucose 255(H) 70 - 100 mg/dL LAB CHEMISTRY METHOD 04/13/2025 1:21 PM [facility] BUN 23 5 - 25 mg/dL LAB CHEMISTRY METHOD 04/13/2025 1:21 PM [facility] Creatinine 1.60(H) 0.70 - 1.30 mg/dL LAB CHEMISTRY METHOD 04/13/2025 1:21 PM [facility] eGFR 49(L) >=60 mL/min/1. 73m2 LAB CHEMISTRY METHOD 04/13/2025 1:21 PM [facility] Comment:Calculation based on the Chronic Kidney Disease Epidemiology Collaboration (CKD-EPI) equation refit without adjustment for race. BUN/Creatinine Ratio 14.4 LAB CHEMISTRY METHOD 04/13/2025 1:21 PM EDT [facility] Calcium 9.5 8.5 - 10.5 mg/dL LAB CHEMISTRY METHOD 04/13/2025 1:21 PM [facility] AST (SGOT) 44(H) 10 - 42 unit/L LAB CHEMISTRY METHOD 04/13/2025 1:21 PM [facility] ALT (SGPT) 59 10 - 60 unit/L LAB CHEMISTRY METHOD 04/13/2025 1:21 PM [facility] Alkaline Phosphatase 140(H) 42 - 121 unit/L LAB CHEMISTRY METHOD 04/13/2025 1:21 PM [facility] Total Protein 7.8 6.0 - 8.0 g/dL LAB CHEMISTRY METHOD 04/13/2025 1:21 PM [facility] Albumin 3.9 3.2 - 5.0 g/dL LAB CHEMISTRY METHOD 04/13/2025 1:21 PM [facility] Total Bilirubin 1.6(H) 0.0 - 1.4 mg/dL LAB CHEMISTRY METHOD 04/13/2025 1:21 PM [facility] Blood Venous blood specimen / Unknown Venipuncture / Unknown 04/13/2025 10:21 AM EDT 04/13/2025 10:21 AM EDT us Nati Sanders MD LAB BLOOD ORDERABLES Final Resul t [facility] [address] [place] [address], * External Diabetic Retina Eye Exam Report (02/19/2025 4:37 PM EDT) Anatomical Region Laterality Modality Ultrasound Historical Provider IMAnita US PROCEDURES Final R esult * (ABNORMAL) Microalbumin creatinine urine ratio (10/25/2024 10:15 AM EST) [facility] Creatinine, Urine 271.0 mg/dL LAB CHEMISTRY METHOD 10/25/2024 1:32 PM EST [facility] Microalb, Ur 1,410.0(H ) 0.0 - 29.0 mg/L LAB CHEMISTRY METHOD 10/25/2024 1:32 PM EST [facility] Microalb/Crea t Ratio 520(H) <30 mg/g creat LAB CHEMISTRY METHOD 10/25/2024 1:32 PM EST [facility] Urine Urine specimen obtained by clean catch procedure / Unknown Non-blood Collection / Unknown 10/25/2024 10:15 AM EST 10/25/2024 10:15 AM EST Nati Sanders MD LAB URINE ORDERABLES Final Resul t [facility] [address] [place] [address], * Depression Screening (12/13/2023) [facility] Depression Screening abstracted Historical Provider HEALTH MAINTENANCE Final Result * Colonoscopy (10/05/2020) [facility] Colonoscopy no interpretation , abstracted Anatomical Region Laterality Modality Other Historical Provider HEALTH MAINTENANCE Final Result * Hepatitis C Screening (05/11/2016) [facility] Hepatitis C Screening abstracted Historical Provider HEALTH MAINTENANCE Final Result from Last 3 Months or Most Recently Relevant to Health Maintenance Insurance MEDICAID - [place] [employer] Care Teams Flight Coordinator Relationship Specialty Start Date End Date Nati Sanders MD [address] [place] [id number] PCP - General Internal Medicine 11/23/24
--- NOTE | 2025-05-25 16:03 | HO.SPINEOV ---
Intake Visit Reasons: numbness on feet Intake Note: Mr. Rowe is here today c/o numbness on both feet. Business Area Manager Required: No Allergies amoxicillin (From Amoxil) Allergy (Severe, Verified 05/25/25 16:03) Anaphylaxis Penicillins (PENICILLINS) Allergy (Severe, Verified 05/25/25 16:03) ANAPHYLAXIS oxycodone Adverse Reaction (Severe, Verified 05/25/25 16:03) Anxiety Assessment & Plan Assessment & Plan (1) Lumbar stenosis: Code(s): M48.061 - Spinal stenosis, lumbar region without neurogenic claudication Category: Medical Qualifiers: Neurogenic claudication status: with neurogenic claudication Qualified Code(s): M48.062 - Spinal stenosis, lumbar region with neurogenic claudication Plan Mr Rowe came in today for follow-up. He is well known to us from an anterior cervical fusion that we did for myelopathy. Initially his stenosis symptoms have gone away after his neck surgery, but unfortunately they returned. He has been having lower back pain radiating into his buttocks in his hamstrings bilaterally. It is aggravated with standing and walking. He has to use a shopping cart. The symptoms go away when he sits down. He has also been having progressive bilateral weakness in his feet. He describes it as being unable to lift his feet upwards. On my exam he does have about a 4-5 bilateral weakness of his tibialis. Dr. Anne and I met with him again today and we reviewed his imaging done here at [place] showing severe stenosis at L2-3 and L4-5. He does have a slight spondy at L4-5 but previous flexion-extension x-rays did not show instability so we are offering him a left-sided approach for bilateral L2-3 and bilateral L4-5 decompression. The patient was given risk and benefits of surgery including but not limited to infection, hematoma, nerve injury, durotomy, weakness, bowel/bladder injury, persistent pain, lumbar. We also discussed the option to continue with conservative treatment and patient wishes to proceed with surgery. They are aware they should stop NSAIDs 7 and aspirin days prior to surgery. All questions were answered to the best of our ability. If there is anything about this patients medical history that we have overlooked or concerns you have about us proceeding with surgery we would appreciate any input you can offer Total amount of time spent in this visit was 20 minutes in discussion of symptoms, lumbar MRI imaging results and subsequent plan of care Luis Miguel Anne MD,PhD [facility] Coding Level of Care Code Est Pt Level 3 (86593) Diagnoses Spinal stenosis of lumbar region with neurogenic claudication M48.062 Neurogenic claudication status: with neurogenic claudication
== END 2025-05-25 16:31 | disposition home or self-care (01) ==
LOC: HO.HNS 15:11
PROVIDERS: Visit Provider Physician Assistant
DX: M48.062 Spinal stenosis, lumbar region with neurogenic claudication (principal)
CPT/HCPCS: 99213